=== PATIENT | female | born 1945 | race Caucasian/White ===

== ENCOUNTER 2019-10-12 13:17 | Emergency (ER) | payer MEDICARE, BC, MEDICAID, SELFPAY ==
[2019-10-12] VITALS (7 sets, daily range): BP systolic 166–224; BP diastolic 98–141; PULSE 74–92; RESP 16–22; TEMP 36.5; O2SAT 92–95; BMI 35.6
--- NOTE | 2019-10-12 13:20 | ED_ITS ---
Entered by Mikaela Grimm, acting as scribe for Sofia Duarte MD HPI - SOB/Dyspnea General: Chief Complaint: Shortness of Breath/Dyspnea Stated Complaint: SOB Time Seen by Provider: 10/12/19 13:19 Source: patient, family and EMS Mode of arrival: EMS Limitations: no limitations History of Present Illness: MD elicited complaint: shortness of breath Onset (ago): day(s) (today) Timing: progressively worsening Exacerbating factors: coughing and deep breaths Relieving factors: nothing Associated symptoms: Reports cough; Deny abdominal pain, chest pain, fever(s), nausea or vomiting Treatment prior to arrival: none Related Data: Home oxygen amount: none Review of Systems Const: Denies: fever, chills, body aches or change in appetite Eyes: Denies: blurry vision or eye discomfort ENMT: Denies: throat pain or dental pain Card: Denies: chest pain Resp: Reports: non-productive cough GI: Denies: abdominal pain, nausea, vomiting or diarrhea : Denies: painful urination Musc: Denies: neck pain or back pain Skin/Breast: Denies: rash Neuro: Denies: headache Psych: Denies: depression Altaf/Lymph: Denies: easy bruising All/Imm: Denies: hives PFSH ED PFSH: Statuses (acute, chronic, etc) shown below reflect problem list status as previously entered and may not be historically accurate Medical History (Updated 10/12/19 @ 14:47 by Sofia Duarte MD) Neurogenic bladder (Acute) Recurrent UTI (Acute) Urinary retention (Chronic) Surgical History (Updated 09/18/19 @ 13:26 by Edd Jeronimo MD) Chronic suprapubic catheter (Acute) Social History Smoking and tobacco status: former smoker Alcohol intake: never Marital status: Current occupational status: disabled Current gender identity: Female Physical Exam Const: COMMON NORMALS: no apparent distress, oriented x3 and healthy appearing HENMT: COMMON NORMALS: normocephalic and head/scalp atraumatic HEAD & SCALP: normocephalic and atraumatic Eye: COMMON NORMALS: PERRL and EOMs intact bilaterally PUPIL: Yes PERRL Neck/C-Spine: COMMON NORMALS: full ROM and supple Chest: COMMONS NORMALS: inspection of chest normal and palpation of chest normal Cardio: COMMON NORMALS: regular rate, regular rhythm and no murmurs RATE: regular rate RHYTHM: regular rhythm GI: COMMON NORMALS: normal to inspection, nondistended, normoactive bowel sounds, soft to palpation, non-tender and no masses PALPATION: Yes soft Extremity: COMMON NORMALS: normal to inspection and full ROM Neuro: COMMON NORMALS: oriented x3, moves all extremities and no focal motor deficits Psych: COMMON NORMALS: mental status grossly normal, thought process normal and cooperative THOUGHT PROCESS: normal thought process Skin: COMMON NORMALS: no rashes or lesions noted and no wounds GENERAL SKIN EXAM: no rashes or lesions noted Course Vital Signs: Vital signs: Vital Signs Temperature 97.7 F 10/12/19 13:19 Pulse Rate 83 10/12/19 15:39 Respiratory Rate 18 10/12/19 15:39 Blood Pressure 175/141 10/12/19 15:39 Pulse Oximetry 92 10/12/19 15:39 MDM - SOB/Dyspnea MDM Narrative: Medical decision making narrative: Patient presents here with cough and congestion with likely bronchitis. She is in no distress here and x- ray shows no signs of pneumonia. Patient is oxygen is been normal here on room air. Will start on Keflex patient given Decadron here. [facility] and is stable for discharge. She is to follow-up with primary care doctor in 3 to 5 days and return if worsening. Lab Data: Labs: Lab Results 10/12/19 10/12/19 Range/Units 13:10 14:12 WBC 5.5 (4.0-10.0) 10^3/ uL RBC 4.19 (4.1-5.3) 10^6/u L Hgb 11.9 (11.5-15.3) g/dL Hct 37.6 (37.0-47.0) % MCV 89.7 (81-99) fL MCH 28.4 (28.0-34.0) pg MCHC 31.6 (30.0-36.0) g/dL RDW 13.5 (12.1-15.1) % Plt Count 202 (130-400) 10^3/c mm MPV 11.1 H (7.4-10.4) fL Neut % (Auto) 55.2 % Lymph % (Auto) 32.8 % [place] % (Auto) 9.0 % Eos % (Auto) 2.4 % Baso % (Auto) 0.4 % Neut # (Auto) 3.0 (1.8-7.7) 10^3/u L Lymph # (Auto) 1.8 (0.8-4.8) 10^3/u L [place] # (Auto) 0.5 (0.2-0.9) 10^3/u L Eos # (Auto) 0.1 (0.0-0.8) 10^3/u L Baso # (Auto) 0.0 (0.0-0.1) 10^3/u L Nucleated RBC % (a uto) 0 % Nucleated RBCs # 0.0 /100WBC Sodium 142 (136-145) mmol/L Potassium 3.4 L (3.5-5.1) mmol/L Chloride 100 (98-107) mmol/L Carbon Dioxide 27 (22-29) mmol/L Anion Gap 18.4 (5-19) BUN 19 (8-23) mg/dL Creatinine 1.8 H (0.5-0.9) mg/dL Glucose 216 H (74-106) mg/dL Calcium 9.6 (8.5-10.5) mg/dL Total Bilirubin 0.2 (0.15-1.2) mg/dL AST 20 (0-32) U/L ALT 25 (0-33) U/L Alkaline Phosphata se 102 (35-105) IU/L NT-Pro-B Natriuret Pep 759 H (0-125) pg/mL Total Protein 7.3 (6.6-8.7) g/dL Albumin 3.7 (3.5-5.2) g/dL Globulin 3.6 (1.3-4.6) g/dL Imaging Data^: CXR: Radiologist's impression: Ordering Provider/Ordering MD: Sofia Duarte MD Date of Service: 10/12/19 Procedure(s): XR chest 1V portable [id number] Accession Number(s): [id number] Report Number: [id number] PROCEDURE INFORMATION: Exam: XR Chest, 1 View Exam date and time: 10/12/2019 1:24 PM Age: 73 years old Clinical indication: Shortness of breath; Additional info: Cough TECHNIQUE: Imaging protocol: XR of the chest Views: 1 view. COMPARISON: CR Chest 1 [place] [id number] 03/10/2019 7:24 PM FINDINGS: Lungs: There are streaky bibasilar opacities. Pleural space: There is no significant pleural effusion. There is no discernible pneumothorax. Heart/Mediastinum: The cardiac silhouette measures upper limits normal in size and is unchanged. Vasculature: Atherosclerotic calcifications are present within the aortic arch. Bones/joints: Unremarkable for technique. XR/XR chest 1V portable [id number] IMPRESSION: 1. Streaky bibasilar opacities, which may reflect atelectasis versus early pneumonia in the correct clinical setting. Consider follow-up evaluation in 4-6 weeks to assess for resolution. EKG Data^: EKG 1: Attestation: I personally reviewed and interpreted this EKG as follows: EKG Interpretation Date: 10/12/19 EKG interpretation time: 13:33 Interpretation: nsr hr [address] or t wave abnormalities qrs 97 qtc 3656 Discharge Plan Discharge Patient Disposition: Home, Self-Care Clinical Impression: Bronchitis, Hypertension Condition: Stable Prescriptions: New Keflex 500 mg capsule 500 mg PO Q6H 7 Days Qty: 28 RF: 0 amlodipine 10 mg tablet 10 mg PO DAILY Qty: 30 RF: 0 Discontinued amlodipine 5 mg tablet 5 mg PO DAILY RF: 0 No Action Prilosec OTC 20 mg tablet,delayed release (DR/EC) 20 mg PO BID RF: 0 albuterol sulfate 2.5 mg /3 mL (0.083 %) solution for nebulization 2.5 mg INHALATION Q4H PRN (Reason: Shortness Of Breath) RF: 0 methenamine hippurate 1 gram tablet 1 gm PO BID RF: 0 polyethylene glycol 3350 [Miralax] 17 gram/dose powder 17 gm PO DAILY RF: 0 docusate sodium [Colace] 100 mg capsule 100 mg PO BID RF: 0 acetaminophen 650 mg suppository 650 mg IN Q4H PRN (Reason: Pain) RF: 0 bisacodyl [Dulcolax (bisacodyl)] 10 mg suppository 10 mg IN PRN RF: 0 magnesium hydroxide [Milk of Magnesia] 400 mg/5 mL suspension See Rx Instructions .ROUTE .COMPLEX RF: 0 acetaminophen [Tylenol] 325 mg tablet 325 - 650 mg PO Q4H PRN (Reason: Pain) RF: 0 isosorbide mononitrate 60 mg tablet extended release 24 hr 60 mg PO DAILY RF: 0 clopidogrel 75 mg tablet 75 mg PO DAILY RF: 0 cholecalciferol (vitamin D3) 1,000 unit capsule 3,000 unit PO DAILY RF: 0 diazepam [Valium] 10 mg tablet 10 mg PO BEDTIME RF: 0 furosemide [Lasix] 20 mg tablet 60 mg PO DAILY RF: 0 potassium chloride 20 mEq tablet extended release 20 meq PO DAILY RF: 0 phenazopyridine [Pyridium] 200 mg tablet 200 mg PO TID PRN (Reason: unknown) RF: 0 Celexa 20 mg Tablet 20 mg PO DAILY RF: 0 bisacodyl 5 mg Tablet,Delayed Release (Dr/Ec) 10 mg PO DAILY PRN (Reason: Constipation) RF: 0 Discharge Orders: Discharge Order (Routine); Ordered 10/12/19 Ordered By: Sofia Duarte Referrals: Svetlana Ware MD [Primary Care Provider] - 4-7 days Discharge Diet: Advance as tolerated Discharge Activity: Resume usual activity Patient Instructions: Acute Bronchitis (ED), Hypertension (ED) Discharge Date/Time: 10/12/19 16:24 Coding Level of Care Code ED Director Public Policy for Chg Fwd Exam Problem Focused The documentation recorded by the Alfa vazquez Bridget Annette, accurately reflects the service I personally performed and the decisions made by Felicia gonzalez Korby, MD Oct 12, 2019 13:17
--- NOTE | 2019-10-12 13:22 | ECG_ITS ---
Measurements Intervals [place] Rate: 73 P: 39 CT: 160 QRS: -43 QRSD: 97 T: 69 QT: 339 QTc: 375 SINUS RHYTHM WITH OCCASIONAL SUPRAVENTRICULAR PREMATURE COMPLEXES LEFT AXIS DEVIATION [QRS AXIS < -30] NONSPECIFIC ST & T-WAVE ABNORMALITY Compared to ECG 03/10/2019 19:18:00 Left-axis deviation now present T-wave abnormality now present Sinus tachycardia no longer present ST (T wave) deviation no longer present Electronically Signed On 10-12-2019 16:24:48 APPLICATION LEAD by Pranay Donato M.D. [email or web address]
[2019-10-12] MEDS: dexamethasone 10 mg/mL INJ IVP (13:36)
[2019-10-12 13:41] LABS: Basophils % 0.4 %; Eosinophils # 0.1 10^3/uL (0.0-0.8); Eosinophils % 2.4 %; Hematocrit 37.6 % (37.0-47.0); Hemoglobin 11.9 g/dL (11.5-15.3); Lymphocytes # 1.8 10^3/uL (0.8-4.8); Lymphocytes % 32.8 %; Mean Corpuscular HGB Conc 31.6 g/dL (30.0-36.0); Mean Corpuscular Hemoglobin 28.4 pg (28.0-34.0); Mean Corpuscular Volume 89.7 fL (81-99); Mean Platelet Volume 11.1 fL (7.4-10.4); Monocytes # 0.5 10^3/uL (0.2-0.9); Neutrophils % 55.2 %; Nucleated Red Blood Cells % 0 %; Platelet Count 202 10^3/cmm (130-400); Red Blood Count 4.19 10^6/uL (4.1-5.3); Red Cell Distribution Width 13.5 % (12.1-15.1); White Blood Count 5.5 10^3/uL (4.0-10.0)
[2019-10-12] MEDS: ipratropium-albuterol 3 mL Neb INHALATION (13:51)
[2019-10-12] MEDS: hyDRALAzine 20 mg/mL INJ 1 mL 10 MG IVP ×2 (14:24→15:08)
[2019-10-12 14:40] LABS: Alanine Aminotransferase 25 U/L (0-33); Albumin Level 3.7 g/dL (3.5-5.2); Alkaline Phosphatase 102 IU/L (35-105); Anion Gap 18.4 (5-19); Aspartate Amino Transferase 20 U/L (0-32); Blood Urea Nitrogen 19 mg/dL (8-23); Calcium 9.6 mg/dL (8.5-10.5); Carbon Dioxide 27 mmol/L (22-29); Chloride 100 mmol/L (98-107); Globulin 3.6 g/dL (1.3-4.6); Glucose 216 mg/dL (74-106); NT Pro B Type Natriuretic Pept 759 pg/mL (0-125); Potassium 3.4 mmol/L (3.5-5.1); Sodium 142 mmol/L (136-145); Total Bilirubin 0.2 mg/dL (0.15-1.2); Total Protein 7.3 g/dL (6.6-8.7)
[2019-10-12] MEDS: cloNIDine 0.1 mg Tablet PO (14:59)
--- NOTE | 2019-10-12 15:38 | PC.NURSE ---
Report given to Meagan at [facility] for patient to come back to their facility. Guille jackman has been called and set up.
== END 2019-10-12 16:24 | disposition home or self-care (01) ==
PROVIDERS: Emergency Provider Emergency Medicine; Family Provider Family Medicine; PCP Family Medicine
DX: J40 Bronchitis, not specified as acute or chronic (principal); I10 Essential (primary) hypertension; Z87.891 Personal history of nicotine dependence
CPT/HCPCS: 36415; 71045; 80053; 83880; 85025; 93005; 94640; 96374; 96375; 96376; 99283; 99284; J0360; J1100; J7611

== ENCOUNTER 2020-01-07 01:33 | Inpatient (IN) | payer MEDICARE, BC, MEDICAID, SELFPAY ==
[2020-01-07] VITALS (17 sets, daily range): BP systolic 153–204; BP diastolic 79–101; PULSE 58–100; RESP 12–24; TEMP 36.3–36.8; O2SAT 94–98
--- NOTE | 2020-01-07 01:37 | XR_ITS ---
WS: [id number] PORTABLE CHEST HISTORY: cough COMPARISON: 10/12/2019 Increasing consolidation at the LEFT lung base. Consolidation obscures the diaphragm and the apex of the heart. Chronic emphysema. No pneumothorax. Cardiac size: Moderately enlarged cardiac silhouette. Mediastinum/Aorta: Mild atherosclerosis aorta. Partially calcified aorta. No osseous abnormality seen. XR/XR chest 1V portable [id number] IMPRESSION: 1. New consolidation at the LEFT lung base. Probably combination of pneumonia and atelectasis and fluid. Recommend follow-up to resolution. 2. Moderate cardiomegaly.
--- NOTE | 2020-01-07 01:39 | ECG_ITS ---
Measurements Intervals [place] Rate: 82 P: ND: 0 QRS: 17 QRSD: 90 T: 50 QT: 372 QTc: 436 Sinus RHYTHM POSSIBLE ANTERIOR MYOCARDIAL INFARCTION , OF INDETERMINATE AGE [30 ms Q WAVE IN V3 V3/V4, OR R < 0.2 mV IN V4] Compared to ECG 10/12/2019 13:33:47 Supraventricular rhythm now present Myocardial infarct finding now present Sinus rhythm no longer present Left-axis deviation no longer present T-wave abnormality no longer present Electronically Signed On 01-07-2020 18:09:38 CDT by Nima Patel M.D. [email or web address]
--- NOTE | 2020-01-07 01:45 | W.ED.GENADLT ---
HPI - General Adult General: Chief complaint: General Medical Stated complaint: HIGH BLOOD PRESSURSE Time Seen by Provider: 01/07/20 01:37 History of Present Illness: HPI narrative: Ms. Vences is a very nice 74-year-old female who comes in from the intermediate with report of severe high blood pressure and hypoxia. Apparently at 1 AM the intermediate obtained vital signs reveal a blood pressure in the 240s over 1 teens. The patient appeared to have labored breathing so a pulse ox was checked and found to have a oxygen saturation in the mid to low 80s. The patient has been gradually becoming more edematous over the past few days according to the intermediate. The patient here denies any complaints but states that she just feels achy all over. All further history is taken from old charts. The patient only answers some yes/no questions but otherwise tries to go back to sleep. Review of Systems General: Reports: ROS unobtainable due to medical condition (Limited other than as noted above.) PFS ED PFSH: Family History Mother , AT AGE 83-[place] No problems noted. Father , OF APPARENT TRACHEAL OBSTRUCTION No problems noted. Social History Smoking and tobacco status: unknown if ever smoked Alcohol intake: never Marital status: Current occupational status: disabled Current gender identity: Female Physical Exam Const: COMMON NORMALS: oriented x3, healthy appearing and well nourished EXAM LIMITATIONS: altered mental status (Somnolent) GENERAL APPEARANCE: cooperative, well kempt, well developed, in distress (Mild respiratory), lethargic, ill appearing, frail appearing and grossly edematous ORIENTATION/CONSCIOUSNESS: Yes awake and Yes lethargic HENMT: COMMON NORMALS: normocephalic, head/scalp atraumatic, hearing grossly normal bilaterally, external ears normal, EAC's normal, external nose normal and moist oral mucous membranes HEAD & SCALP: normal to inspection, normocephalic and atraumatic FACE & SINUS: normal facial exam and face symmetric NOSE: external nose normal and nares normal EXTERNAL EAR: Yes external ears normal EXTERNAL AUDITORY CANAL: EAC's normal MOUTH: oral and palatal mucosa normal and tongue normal Eye: COMMON NORMALS: PERRL, EOMs intact bilaterally, conjunctivae normal and no scleral icterus GENERAL EYE: normal appearance of both eyes and normal light reflex CONJUNCTIVA: Yes conjunctivae normal SCLERA: sclerae normal CORNEA: Yes corneas normal PUPIL: Yes PERRL DIRECT OPHTHALMOSCOPY: Yes normal light reflex Neck/C-Spine: COMMON NORMALS: full ROM, no lymphadenopathy, supple, no meningeal signs and no JVD GENERAL: Yes normal visual inspection and Yes trachea midline CERVICAL SPINE: Yes cervical ROM normal Chest: COMMONS NORMALS: inspection of chest normal and palpation of chest normal Resp: COMMON NORMALS: no retractions and no use of accessory muscles EFFORT & INSPECTION: Yes uses accessory muscles AUSCULTATION: rales and wheezes Cardio: COMMON NORMALS: no JVD, regular rate, regular rhythm, S1 normal heart sound, S2 normal heart sound, no gallops, no clicks, no murmurs and no rub JUGULAR VENOUS DISTENTION: no JVD RATE: regular rate RHYTHM: regular rhythm HEART SOUNDS: S1 normal and S2 normal GI: COMMON NORMALS: soft to palpation, non-tender, no hepatosplenomegaly and no masses INSPECTION: Yes normal to inspection PALPATION: Yes soft and Yes no hepatosplenomegaly : COMMON NORMALS: Yes no CVA tenderness BLADDER/KIDNEY EXAM: Yes no CVA tenderness Back/Pelvis: COMMON NORMALS: no CVA tenderness, thoracic and lumbar spine normal to inspection, no thoracic nor lumbar tenderness and thoraco-lumbar ROM normal Extremity: COMMON NORMALS: normal to inspection, full ROM, normal capillary refill, no joint enlargement and no calf tenderness NARRATIVE EXTREMITY EXAM: Diffuse edema Neuro: COMMON NORMALS: oriented x3, CN's II-XII intact bilaterally, moves all extremities, no focal motor deficits and no sensory deficits noted SENSORIUM/ORIENTATION: Yes lethargic MENINGEAL SIGNS: Yes no meningeal signs Psych: COMMON NORMALS: mental status grossly normal, thought process normal, cooperative, affect normal, speech normal and activity/motor behavior normal APPEARANCE: Yes well kempt SPEECH: Yes normal speech THOUGHT PROCESS: normal thought process Skin: COMMON NORMALS: no rashes or lesions noted, skin turgor normal, no jaundice, no petechiae and no mottling GENERAL SKIN EXAM: no rashes or lesions noted and turgor normal Course Vital Signs: Vital signs: Vital Signs Temperature 98.2 F 01/07/20 01:50 Pulse Rate 82 01/07/20 02:45 Respiratory Rate 22 H 01/07/20 02:28 Blood Pressure 204/101 01/07/20 01:50 Pulse Oximetry 96 01/07/20 02:45 MDM - General Adult MDM Narrative: Medical decision making narrative: Mrs. Vences is a nice 74-year-old female who comes in what appears to be a congestive heart failure exacerbation and hypoxic and hypercapnic respiratory failure. The patient is doing better on BiPAP at this time. Her blood pressure was markedly elevated when she arrived but this is improved after nitroglycerin and Lasix. Urinalysis is still pending at this time and UTI as a cause for her symptoms is a possibility. Nonetheless she is doing better so I have reviewed the case in full with Dr. Chen he agrees to admit for further treatment and stepdown. Lab Data: Attestation: I reviewed the patient's lab results. Labs: Lab Results 01/07/20 01/07/20 01/07/20 Range/Units 02:09 02:21 02:21 WBC 4.7 (4.0-10.0) 10^3/ uL RBC 3.53 L (4.1-5.3) 10^6/u L Hgb 10.0 L (11.5-15.3) g/dL Hct 33.4 L (37.0-47.0) % MCV 94.6 (81-99) fL MCH 28.3 (28.0-34.0) pg MCHC 29.9 L (30.0-36.0) g/dL RDW 15.0 (12.1-15.1) % Plt Count 137 (130-400) 10^3/c mm MPV 10.5 H (7.4-10.4) fL Neut % (Auto) 69.6 % Lymph % (Auto) 18.8 % [place] % (Auto) 6.8 % Eos % (Auto) 3.6 % Baso % (Auto) 0.6 % Neut # (Auto) 3.3 (1.8-7.7) 10^3/u L Lymph # (Auto) 0.9 (0.8-4.8) 10^3/u L [place] # (Auto) 0.3 (0.2-0.9) 10^3/u L Eos # (Auto) 0.2 (0.0-0.8) 10^3/u L Baso # (Auto) 0.0 (0.0-0.1) 10^3/u L Nucleated RBC % (a uto) 0 % Nucleated RBCs # 0.0 /100WBC PT 13.80 H (10.5-13.3) SECO NDS INR 1.03 (0.8-1.2) Sodium (136-145) mmol/L Potassium (3.5-5.1) mmol/L Chloride (98-107) mmol/L Lactic Acid (0.5-2.2) mmol/L Troponin T Baselin e (0-10) ng/mL Influenza Type A A g Negative (Negative) Influenza Type B A g Negative (Negative) 01/07/20 01/07/20 01/07/20 Range/Units 02:21 02:21 02:21 WBC (4.0-10.0) 10^3/ uL RBC (4.1-5.3) 10^6/u L Hgb (11.5-15.3) g/dL Hct (37.0-47.0) % MCV (81-99) fL MCH (28.0-34.0) pg MCHC (30.0-36.0) g/dL RDW (12.1-15.1) % Plt Count (130-400) 10^3/c mm MPV (7.4-10.4) fL Neut % (Auto) % Lymph % (Auto) % [place] % (Auto) % Eos % (Auto) % Baso % (Auto) % Neut # (Auto) (1.8-7.7) 10^3/u L Lymph # (Auto) (0.8-4.8) 10^3/u L [place] # (Auto) (0.2-0.9) 10^3/u L Eos # (Auto) (0.0-0.8) 10^3/u L Baso # (Auto) (0.0-0.1) 10^3/u L Nucleated RBC % (a uto) % Nucleated RBCs # /100WBC PT (10.5-13.3) SECO NDS INR (0.8-1.2) Sodium 146 H (136-145) mmol/L Potassium 4.7 (3.5-5.1) mmol/L Chloride 108 H (98-107) mmol/L Lactic Acid 0.5 (0.5-2.2) mmol/L Troponin T Baselin e 44 H (0-10) ng/mL Influenza Type A A g (Negative) Influenza Type B A g (Negative) Imaging Data^: CXR: My impression: Cardiomegaly with left-sided pleural effusion. EKG Data^: EKG 1: Attestation: I personally reviewed and interpreted this EKG as follows: EKG interpretation date: 01/07/20 EKG interpretation time: 02:39 Interpretation: Normal sinus rhythm at 82 beats a minute, significant baseline artifact, nonspecific ST and T wave changes. Discharge Plan Discharge Patient Disposition: Admitted As Inpatient Clinical Impression: Respiratory failure with hypoxia and hypercapnia, Acute exacerbation of congestive heart failure Condition: Stable Prescriptions: No Action Prilosec OTC 20 mg tablet,delayed release (DR/EC) 20 mg PO BID RF: 0 albuterol sulfate 2.5 mg /3 mL (0.083 %) solution for nebulization 2.5 mg INHALATION Q4H PRN (Reason: Shortness Of Breath) RF: 0 methenamine hippurate 1 gram tablet 1 gm PO BID RF: 0 polyethylene glycol 3350 [Miralax] 17 gram/dose powder 17 gm PO DAILY RF: 0 docusate sodium [Colace] 100 mg capsule 100 mg PO BID RF: 0 acetaminophen 650 mg suppository 650 mg IA Q4H PRN (Reason: Pain) RF: 0 bisacodyl [Dulcolax (bisacodyl)] 10 mg suppository 10 mg IA PRN RF: 0 magnesium hydroxide [Milk of Magnesia] 400 mg/5 mL suspension See Rx Instructions .ROUTE .COMPLEX RF: 0 acetaminophen [Tylenol] 325 mg tablet 325 - 650 mg PO Q4H PRN (Reason: Pain) RF: 0 isosorbide mononitrate 60 mg tablet extended release 24 hr 60 mg PO DAILY RF: 0 clopidogrel 75 mg tablet 75 mg PO DAILY RF: 0 cholecalciferol (vitamin D3) 1,000 unit capsule 3,000 unit PO DAILY RF: 0 diazepam [Valium] 10 mg tablet 10 mg PO BEDTIME RF: 0 furosemide [Lasix] 20 mg tablet 60 mg PO DAILY RF: 0 potassium chloride 20 mEq tablet extended release 20 meq PO DAILY RF: 0 phenazopyridine [Pyridium] 200 mg tablet 200 mg PO TID PRN (Reason: unknown) RF: 0 Celexa 20 mg Tablet 20 mg PO DAILY RF: 0 bisacodyl 5 mg Tablet,Delayed Release (Dr/Ec) 10 mg PO DAILY PRN (Reason: Constipation) RF: 0 amlodipine 10 mg tablet 10 mg PO DAILY Qty: 30 RF: 0 Referrals: Svetlana Ware MD [Primary Care Provider] - Coding Level of Care Code ED Sustainable Communities Designer for Chg [facility]
[2020-01-07 02:19] LABS: ABG PCO2 52.6 mmHg (35-45); ABG PH Result 7.35 (7.35-7.45); Arterial Blood Gas Hematocrit 34.3 % (37-47); Base Excess ABG 2.2 mmol/L (-2.0-2.0); Blood Gas Allen Test Pos; Blood Gas Sample Site Radial, right; Blood Gas Sample Type Arterial; HCO3 ABG 28.7 mmol/L (22-26); Oxygen Device NC
[2020-01-07] MEDS: ipratropium-albuterol 3 mL Neb 9 ML INHALATION (02:23)
[2020-01-07 02:28] LABS: Basophils % 0.6 %; Eosinophils # 0.2 10^3/uL (0.0-0.8); Eosinophils % 3.6 %; Hematocrit 33.4 % (37.0-47.0); Lymphocytes # 0.9 10^3/uL (0.8-4.8); Lymphocytes % 18.8 %; Mean Corpuscular HGB Conc 29.9 g/dL (30.0-36.0); Mean Corpuscular Hemoglobin 28.3 pg (28.0-34.0); Mean Corpuscular Volume 94.6 fL (81-99); Mean Platelet Volume 10.5 fL (7.4-10.4); Monocytes # 0.3 10^3/uL (0.2-0.9); Monocytes % 6.8 %; Neutrophils # 3.3 10^3/uL (1.8-7.7); Neutrophils % 69.6 %; Nucleated Red Blood Cells % 0 %; Platelet Count 137 10^3/cmm (130-400); Red Blood Count 3.53 10^6/uL (4.1-5.3); White Blood Count 4.7 10^3/uL (4.0-10.0)
[2020-01-07 02:46] LABS: INR 1.03 (0.8-1.2); Lactic Sepsis W/Reflex 0.5 mmol/L (0.5-2.2)
[2020-01-07 02:48] LABS: Troponin(5th) Baseline 44 ng/mL (0-10)
[2020-01-07] MEDS: nitroglycerin 1 gm/inch oint Pkt 1 INCH TOPICAL (02:56)
[2020-01-07] MEDS: FUROsemide 10 mg/mL SDV 4mL 60 MG IVP (02:56)
[2020-01-07] MEDS: piperacillin-tazobactam 3.375 GM in sodium chloride 0.9% (plus) 50 ML IV (02:56)
[2020-01-07 03:00] LABS: Influenza A by IFA Negative (Negative); Influenza B by IFA Negative (Negative)
[2020-01-07 03:10] LABS: Chloride 108 mmol/L (98-107); Potassium 4.7 mmol/L (3.5-5.1); Sodium 146 mmol/L (136-145)
--- NOTE | 2020-01-07 03:17 | PM.HP ---
Providers/Chief Complaint Primary Care Provider: Svetlana Ware MD Chief Complaint: HIGH BLOOD PRESSURSE History of Present Illness Bety Vences is a 74 year old female , [facility] resident who carries diagnosis of multiple sclerosis, neurogenic bladder, suprapubic catheter, bedbound, diastolic congestive heart failure came in with chief complaint of uncontrolled hypertension. As per the [facility], patient uses electric scooter for ambulation, mostly stays in her bed, she has chronic swelling of lower extremities, at change of shift nursing staff took her blood pressure which was 240/118, she was found to have mild confusion for which she was sent to our ER for further evaluation. Patient is not able to tell us why she is in the hospital. She is currently denying chest pain, but is endorsing orthopnea, PND. She is denying sick contacts, fever, chills, nausea, vomiting or change in bowel movements at the facility. Diagnostics in the ER revealed systolic blood pressure around 210, diastolic 100, she was given IV Lasix and Nitropaste was used to reduce blood pressure, ABG revealed hypoxic hypercarbic respiratory failure, she was put on BiPAP to decrease respiratory distress, at the time of my interview she was awake alert able to comprehend my questions. Review of Systems Const: Reports: body aches and fatigue; Denies: fever or chills Eyes: Denies: change in vision ENMT: Denies: throat pain Card: Denies: chest pain Resp: Reports: shortness of breath GI: Denies: abdominal pain or nausea : Denies: flank pain Musc: Reports: muscle cramps Skin/Breast: Denies: rash Neuro: Denies: headache Psych: Denies: anxiety or depression Endo: Denies: excessive urination Altaf/Lymph: Denies: easy bruising All/Imm: Denies: hives Medications/Allergies Home Medications Medication Instructions Recorded Confirmed Last Taken Type acetaminophen 325 mg tablet 325 - 650 mg PO Q4H PRN 09/18/19 10/12/19 Unknown History acetaminophen 650 mg rectal 650 mg ME Q4H PRN 09/18/19 10/12/19 Unknown History suppository albuterol sulfate 2.5 mg INHALATION Q4H PRN 09/18/19 10/12/19 Unknown History bisacodyl 10 mg rectal suppository 10 mg ME PRN each 09/18/19 10/12/19 Unknown History cholecalciferol (vitamin D3) 25 3,000 unit PO DAILY cap 09/18/19 10/12/19 10/12/19 History mcg (1,000 unit) capsule clopidogrel 75 mg tablet 75 mg PO DAILY tab 09/18/19 10/12/19 10/12/19 History diazepam 10 mg tablet 10 mg PO BEDTIME tab 09/18/19 10/12/19 Unknown History docusate sodium 100 mg capsule 100 mg PO BID cap 09/18/19 10/12/19 10/12/19 History furosemide 20 mg tablet 60 mg PO DAILY tab 09/18/19 10/12/19 10/12/19 History isosorbide mononitrate 60 mg 60 mg PO DAILY tab 09/18/19 10/12/19 10/12/19 History tablet,extended release 24 hr magnesium hydroxide 400 mg/5 mL See Rx Instructions .ROUTE 09/18/19 10/12/19 Unknown History oral suspension .COMPLEX ml methenamine hippurate 1 gram tablet 1 gm PO BID 09/18/19 10/12/19 10/12/19 History omeprazole magnesium 20 mg 20 mg PO BID 09/18/19 10/12/19 10/12/19 History tablet,delayed release phenazopyridine 200 mg tablet 200 mg PO TID PRN 09/18/19 10/12/19 Unknown History polyethylene glycol 3350 17 17 gm PO DAILY gm 09/18/19 10/12/19 10/12/19 History gram/dose oral powder potassium chloride 20 mEq 20 meq PO DAILY tab 09/18/19 10/12/19 10/12/19 History tablet,extended release amlodipine 10 mg PO DAILY #30 tab 10/12/19 Unknown Rx bisacodyl 10 mg PO DAILY PRN 10/12/19 10/12/19 Unknown History citalopram [Celexa] 20 mg PO DAILY 10/12/19 10/12/19 10/12/19 History Allergies Allergy/AdvReac Type Severity Reaction Status Date / Time Iodinated Contrast Media Allergy Unknown Verified 09/09/19 17:59 iodine Allergy UNKNOWN Verified 09/09/19 17:59 prednisone Allergy UNKNOWN Verified 09/09/19 17:59 PFSH Acute PFSH: Medical History Abnormal renal function Acute worsening of stage 3 chronic kidney disease Diabetes Heart failure with preserved ejection fraction Multiple sclerosis Neurogenic bladder Recurrent UTI Status post fracture of femur Urinary retention Surgical History Chronic suprapubic catheter History of History of heart artery stent Drug-eluting stent obtuse marginal and distal left circumflex, 10/13/2008, first diagonal branch and anterior descending Status post cataract extraction Status post cholecystectomy Status post hysterectomy Family History Mother , AT AGE 83-[place] No problems noted. Father , OF APPARENT TRACHEAL OBSTRUCTION No problems noted. Social History Smoking and tobacco status: unknown if ever smoked Alcohol intake: never Marital status: Current occupational status: disabled Current gender identity: Female Vitals/I&O/Wt Last Vital Signs Temp 98.2 F 01/07/20 01:50 Pulse 81 01/07/20 02:28 Resp 22 H 01/07/20 02:28 BP 204/101 01/07/20 01:50 Pulse Ox 97 01/07/20 02:28 Weight last 48 hrs Weight 90.718 kg Physical Exam Narrative: EXAM NARRATIVE: Appears stated age, morbidly obese female Currently on BiPAP setting 25/06 with good tidal volumes Saturating well Clinically looks fluid overloaded, bilateral lower extremity 3+ pitting edema with venous stasis dermatitis no active signs of cellulitis S1, S2 with 2/ 6 systolic murmur around precordium Abdomen distended, nontender, bowel sounds present Suprapubic catheter without any active drainage or signs of cellulitis around insertion site Awake alert oriented x3 has poor insight, Skin shows venous stasis dermatitis Data : 01/07/20 02:21 01/07/20 02:21 Micro: Microbiology 01/07/20 02:08 Blood Culture - Preliminary Blood SPECIMEN COLLECTED 01/07/20 02:08 Blood Culture - Preliminary Blood SPECIMEN COLLECTED A&P Assessment and plan (1) Respiratory failure with hypoxia and hypercapnia: Status: Acute Qualifiers: Chronicity: acute Qualified Code(s): J96.01 - Acute respiratory failure with hypoxia; J96.02 - Acute respiratory failure with hypercapnia (2) Acute exacerbation of congestive heart failure: Status: Acute Qualifiers: Heart failure type: unspecified Qualified Code(s): I50.9 - Heart failure, unspecified (3) Chronic suprapubic catheter: Status: Acute (4) Hypertensive emergency: Status: Acute Additional A&P Information Acute hypoxic hypercarbic respiratory failure due to CHF exacerbation Currently doing well on BiPAP Does not use oxygen at baseline Blood gas reviewed This is most likely secondary to fluid congestion due to CHF exacerbation with possibility of evolving left lower lobe pneumonia, her bicarb seems to be around 27, not sure if she has any sleep studies for diagnosis of obstructive sleep apnea Community-acquired pneumonia No recent hospitalization in the last 90 days, no recent IV antibiotic usage I will treat her with ceftriaxone and azithromycin, check urine antigens, she has low pneumonia severity index Chest x-ray revealing fluid congestion, pleural effusion, probably evolving left lower lobe pneumonia Diastolic congestive heart failure with active exacerbation due to hypertensive emergency I would diurese her with IV Lasix at this point and monitor creatinine closely, clinically she is fluid overloaded Review of previous echo reveals preserved ejection fraction Hypertensive emergency target mean arterial pressure reduction 25% in first 16 to 20 hours I would add metoprolol along Imdur, discontinue Nitropaste in next 4 hours Chronic kidney disease stage III Creatinine at baseline no active exacerbation I would not order urine culture because of indwelling catheter which might show colonized microorganisms Chronic normocytic anemia Hemoglobin stable DNR/DNI Cardiac diet Attestations Medical Necessity Statement*: Anticipating stay in the hospital to cross more than 2 midnights currently needs IV diuresis and BiPAP for hypercarbic respiratory failure Time Spent in Patient Care: 50 Coding Level of Care Code 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
[2020-01-07 03:37] LABS: Alanine Aminotransferase 24 U/L (0-33); Alkaline Phosphatase 116 IU/L (35-105); Anion Gap 15.7 (5-19); Aspartate Amino Transferase 16 U/L (0-32); Blood Urea Nitrogen 22 mg/dL (8-23); Calcium 9.5 mg/dL (8.5-10.5); Carbon Dioxide 27 mmol/L (22-29); Glucose 99 mg/dL (65-115); Magnesium 2.2 mg/dL (1.7-2.3); Osmolality Calculated 299 mOsm/kg (285-295); Total Bilirubin 0.2 mg/dL (0.15-1.2); Total Protein 6.7 g/dL (6.6-8.7)
--- NOTE | 2020-01-07 03:39 | ECG_ITS ---
Measurements Intervals [place] Rate: 81 P: 17 GA: 151 QRS: 5 QRSD: 98 T: 47 QT: 389 QTc: 453 SINUS RHYTHM POSSIBLE ANTERIOR MYOCARDIAL INFARCTION , OF INDETERMINATE AGE [30 ms Q WAVE IN V3 V3/V4, OR R < 0.2 mV IN V4] Compared to ECG 10/12/2019 13:33:47 Myocardial infarct finding now present Left-axis deviation no longer present T-wave abnormality no longer present Electronically Signed On 01-07-2020 18:12:54 CDT by Nima Patel M.D. [email or web address]
[2020-01-07 03:41] LABS: Albumin Level 3.8 g/dL (3.5-5.2); Globulin 2.9 g/dL (1.3-4.6); NT Pro B Type Natriuretic Pept 2101 pg/mL (0-125)
[2020-01-07 04:01] LABS: Troponin 5 2HR 44.06 ng/mL (0-10); Troponin 5 2HR Delta 0.06 ABS# (0-10)
[2020-01-07 05:03] LABS: Bacteria Urine 4+; Bilirubin Urine Neg (NEGATIVE); Blood Urine 3+ (Negative); Glucose Urine UA Norm (Normal); Ketones Urine Negative (Negative); Leukocyte Esterase Urine 2+ (Negative); Nitrate Urine Negative (Negative); Protein Urine 2+ (Negative); RBC Urine 25-40 /hpf (0-2); Squamous Epithelial Cell Urine 0-4 (0-5); Urine Appearance Cloudy (CLEAR); Urine Color Yellow (Yellow); Urobilinogen Urine Norm (Negative); WBC Urine 0-4 /hpf (0-5); pH Urine 5 (5-7)
[2020-01-07 05:04] LABS: Add Urine Culture? Yes
--- NOTE | 2020-01-07 07:37 | PC.NURSE ---
Patient on Unit.
--- NOTE | 2020-01-07 08:23 | PC.NURSE ---
Admission note Patient being admitted with respiratory failure, she is noted to be alert to person and place only, she resides at [facility]. She is noted to have a history of MS for several years with abnormal extension and spasticity noted to lower extremities. Per chart she is noted to have a history of an AL< CKD, Diabetes, neuromuscular dysfunction of the bladder with chronic arnold, CHF, anemia and edema. HR noted to be regular with ppp x 2, 3+ pitting edema noted to ble. Lungs noted to be diminished throughout with expiratory wheezing noted. Noted to have active bs with abd soft and non tender. She denies pain at this time. Skin is warm and dry with abrasion that is covered with optifoam to left buttock. All other skin is wamr and dry.
[2020-01-07] MEDS: ipratropium-albuterol 3 mL Neb INHALATION ×2 (08:52→21:33)
[2020-01-07] MEDS: clopidogrel 75 mg Tablet PO (09:37)
[2020-01-07] MEDS: metoprolol tartrate 25 mg Tablet PO ×2 (09:37→17:16)
[2020-01-07] MEDS: pantoprazole DR 40 mg Tablet PO (09:37)
[2020-01-07] MEDS: docusate sodium 100 mg Capsule PO ×2 (09:37→17:16)
[2020-01-07] MEDS: citalopram 20 mg Tablet PO (09:37)
[2020-01-07] MEDS: amlodipine 10 mg Tablet PO (09:37)
[2020-01-07] MEDS: isosorbide mononitrate ER 60 mg Tablet PO (09:37)
[2020-01-07] MEDS: azithromycin 250 mg Tablet 500 MG PO (09:37)
[2020-01-07] MEDS: cefTRIAXone 1,000 MG in sodium chloride 0.9% (plus) 50 ML 100 MG IV (09:38)
[2020-01-07] MEDS: heparin 5,000 unit/mL INJ 1 mL 5000 UNIT SUBCUT ×3 (09:38→22:56)
--- NOTE | 2020-01-07 11:32 | PC.CHAP ---
Pastoral Care Encounter/Spiritual Assessment Type of Contact [] Declined mounter automatic visit [] Patient/Family/Request visit [] Outpatient visit [] Follow-up visit [] Physician referral [] Code/Alert [] Routine visit [] Staff referral [] Actively dying [] Patient sleeping [] Family support [] [] Out of room [] Palliative care [] [] Receiving care in room [] Pre-surgical visit [] Trauma [] Long length of stay [] ICU visit [x] Other: on life suopport Relational/Emotional Strength [] Patient feels connected with others/family/visitors/staff [] Distress [] Loneliness/isolation [] Abandonment Spirituality of Patient [] Person of Yamini [] Attends Sabianism of their Yamini [] Believes in Prayer [] Reads Bible or Methodist materials [] There are Spiritual issues to be addressed Metal Sprayer Protective Coating Interventions [] Prayer [] Active listening [] Non-anxious presence [] Spiritual/emotional support [] Crisis/trauma care [] Spiritual counseling [] Bereavement support [] Provided bereavement packet [] Provided Bible/devotional materials [] Provided toy/stuffed animal, coloring book to patient or family member [] Provided Communion [] Anointing/[place]ola [] Salvation [] Completed spiritual assessment [] Other: Impact on Illness or Injury [] Angry [] Fearful [] Anxious [] Often cries [] Exhaustion [] Unable to work [] Unable to attend anglican [] Unable to walk/stand [] Unable to read [] Unable to drive [] Unable to eat/drink [] Unable to sleep [] Unable to be with family [x] Patient intubated [] Other: Summary on life support Time spent with patient 5 mins
[2020-01-07] MEDS: FUROsemide 10 mg/mL SDV 4mL 40 MG IVP (14:56)
--- NOTE | 2020-01-07 18:57 | P.PN_ITS ---
Subjective Subjective: Interval history: She is feeling a little better. Having breakfast. Denies having cough. Vitals/I&O/Wt Last Vital Signs Temp 97.4 F L 01/07/20 15:41 Pulse 69 01/07/20 16:33 Resp 16 01/07/20 15:41 BP 180/79 01/07/20 15:41 Pulse Ox 94 01/07/20 16:33 01/07/20 01/07/20 01/07/20 06:59 14:59 22:59 Intake Total 480 / 480 290 / 770 Output Total 1300 / 1300 1150 / 2450 Balance -820 / -820 -860 / -1680 Weight last 48 hrs Weight 90.718 kg Physical Exam Const: COMMON NORMALS: no apparent distress and oriented x3 OTHER: Generally weak, although this appears to be chronic with MS HENMT: COMMON NORMALS: oropharynx normal Neck/C-Spine: COMMON NORMALS: no JVD Resp: COMMON NORMALS: normal respiratory effort AUSCULTATION: rhonchi, wheezes and diminished lung sounds Cardio: COMMON NORMALS: no JVD, regular rhythm, S1 normal heart sound, S2 normal heart sound and no murmurs RHYTHM: regular rhythm HEART SOUNDS: S1 normal and S2 normal GI: COMMON NORMALS: normal to inspection, nondistended, normoactive bowel sounds, soft to palpation and non-tender PALPATION: Yes soft Extremity: COMMON NORMALS: no joint enlargement GENERAL: Yes edema (2+) OTHER: Chronically not mobile, with lower extremity contractures Neuro: COMMON NORMALS: oriented x3 and moves all extremities Skin: COMMON NORMALS: no rashes or lesions noted GENERAL SKIN EXAM: no rashes or lesions noted Data : 01/07/20 02:21 01/07/20 02:21 Micro: Microbiology 01/07/20 10:25 Legionella Urinary Antigen - Final Urine,Voided Bacterial Antigens - Final 01/07/20 02:08 Blood Culture - Preliminary Blood SPECIMEN COLLECTED 01/07/20 02:08 Blood Culture - Preliminary Blood SPECIMEN COLLECTED A&P Assessment and plan (1) Respiratory failure with hypoxia and hypercapnia: Subjectively she is feeling little bit better. On nasal cannula during my evaluation, weaned down off BiPAP. Awake and alert. Suspected secondary to left lower lobe pneumonia, CHF exacerbation, possibly also underlying chronic COPD with visible emphysema on imaging. Continue antibiotic, Lasix, breathing treatments. Status: Acute Qualifiers: Chronicity: acute Qualified Code(s): J96.01 - Acute respiratory failure with hypoxia; J96.02 - Acute respiratory failure with hypercapnia (2) Acute exacerbation of congestive heart failure: Continue diuresis. No chest pain. Mild troponin elevation without definitive peak/rise. Status: Acute Qualifiers: Heart failure type: unspecified Qualified Code(s): I50.9 - Heart failure, unspecified (3) Chronic suprapubic catheter: With microscopic hematuria on UA. Status: Acute (4) Hypertensive emergency: Blood pressure improved, although fluctuating, and higher this afternoon. Continue to monitor, amlodipine, Lasix, Imdur, metoprolol, cardiac diet. Status: Acute (5) Community acquired pneumonia: Continue antibiotics. Oxygen support. Status: Acute Additional A&P Information Chronic kidney disease stage III Chronic normocytic anemia Attestations Medical Necessity Statement*: Continue admission for assessment and management of acute hypoxic and hypercapnic respiratory failure, pneumonia, CHF exacerbation, poorly controlled hypertension in the setting of chronic medical comorbidities. 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
[2020-01-08] VITALS (10 sets, daily range): BP systolic 159–193; BP diastolic 70–94; PULSE 54–82; RESP 15–20; TEMP 36.3–36.8; O2SAT 84–97
[2020-01-08] MEDS: FUROsemide 10 mg/mL SDV 4mL 40 MG IVP (02:46)
[2020-01-08 05:21] LABS: Basophils % 0.7 %; Eosinophils # 0.1 10^3/uL (0.0-0.8); Eosinophils % 2.3 %; Hematocrit 31.5 % (37.0-47.0); Hemoglobin 9.5 g/dL (11.5-15.3); Lymphocytes # 1.1 10^3/uL (0.8-4.8); Lymphocytes % 24.4 %; Mean Corpuscular HGB Conc 30.2 g/dL (30.0-36.0); Mean Corpuscular Hemoglobin 28.8 pg (28.0-34.0); Mean Corpuscular Volume 95.5 fL (81-99); Mean Platelet Volume 10.8 fL (7.4-10.4); Monocytes # 0.3 10^3/uL (0.2-0.9); Monocytes % 7.5 %; Neutrophils # 2.8 10^3/uL (1.8-7.7); Neutrophils % 64.6 %; Nucleated Red Blood Cells % 0 %; Platelet Count 150 10^3/cmm (130-400); Red Cell Distribution Width 14.7 % (12.1-15.1); White Blood Count 4.4 10^3/uL (4.0-10.0)
[2020-01-08 05:38] LABS: Anion Gap 13.5 (5-19); Blood Urea Nitrogen 24 mg/dL (8-23); Calcium 9.3 mg/dL (8.5-10.5); Carbon Dioxide 31 mmol/L (22-29); Chloride 103 mmol/L (98-107); Glucose 82 mg/dL (65-115); Osmolality Calculated 294 mOsm/kg (285-295); Potassium 3.5 mmol/L (3.5-5.1); Sodium 144 mmol/L (136-145)
[2020-01-08] MEDS: ipratropium-albuterol 3 mL Neb INHALATION (08:20)
[2020-01-08] MEDS: clopidogrel 75 mg Tablet PO (09:06)
[2020-01-08] MEDS: citalopram 20 mg Tablet PO (09:06)
[2020-01-08] MEDS: docusate sodium 100 mg Capsule PO (09:06)
[2020-01-08] MEDS: metoprolol tartrate 25 mg Tablet PO (09:06)
[2020-01-08] MEDS: amlodipine 10 mg Tablet PO (09:06)
[2020-01-08] MEDS: polyethylene glycol 3350 Pkt 17 gm PO (09:07)
[2020-01-08] MEDS: cefTRIAXone 1,000 MG in sodium chloride 0.9% (plus) 50 ML 100 MG IV (09:07)
[2020-01-08] MEDS: pantoprazole DR 40 mg Tablet PO (09:07)
[2020-01-08] MEDS: isosorbide mononitrate ER 60 mg Tablet PO (09:07)
[2020-01-08] MEDS: heparin 5,000 unit/mL INJ 1 mL 5000 UNIT SUBCUT (09:07)
[2020-01-08] MEDS: azithromycin 250 mg Tablet 500 MG PO (09:07)
--- NOTE | 2020-01-08 09:56 | PC.CHAP ---
Pastoral Care Encounter/Spiritual Assessment Type of Contact [] Declined first officer visit [] Patient/Family/Request visit [] Outpatient visit [] Follow-up visit [] Physician referral [] Code/Alert [x] Routine visit [] Staff referral [] Actively dying [] Patient sleeping [] Family support [] [] Out of room [] Palliative care [] [] Receiving care in room [] Pre-surgical visit [] Trauma [] Long length of stay [] ICU visit [] Other: Relational/Emotional Strength [] Patient feels connected with others/family/visitors/staff [] Distress [] Loneliness/isolation [] Abandonment Spirituality of Patient [] Person of Yamini [] Attends Yazidism of their Yamini [x] Believes in Prayer [] Reads Bible or Anglican materials [] There are Spiritual issues to be addressed Customer Service Analyst Interventions [x] Prayer [] Active listening [] Non-anxious presence [] Spiritual/emotional support [] Crisis/trauma care [] Spiritual counseling [] Bereavement support [] Provided bereavement packet [] Provided Bible/devotional materials [] Provided toy/stuffed animal, coloring book to patient or family member [] Provided Communion [] Anointing/Menan [] Salvation [x] Completed spiritual assessment [] Other: Impact on Illness or Injury [] Angry [] Fearful [] Anxious [] Often cries [] Exhaustion [] Unable to work [] Unable to attend hindu [] Unable to walk/stand [] Unable to read [] Unable to drive [] Unable to eat/drink [] Unable to sleep [] Unable to be with family [] Patient intubated [] Other: Summary Patient resting well Time spent with patient 5 min
--- NOTE | 2020-01-08 13:07 | PM.DCS ---
Discharge Providers Date of Admission: 01/07/20 05:49 Date of Discharge: January 08, 2020 Attending Provider at Admission: Nima Chen MD Attending Provider at Discharge: Alexys Latif Primary Care Provider: Svetlana Ware MD Diagnoses at Discharge Discharge Diagnosis (1) Respiratory failure with hypoxia and hypercapnia: Status: Acute Qualifiers: Chronicity: acute Qualified Code(s): J96.01 - Acute respiratory failure with hypoxia; J96.02 - Acute respiratory failure with hypercapnia (2) Acute exacerbation of congestive heart failure: Status: Acute Qualifiers: Heart failure type: unspecified Qualified Code(s): I50.9 - Heart failure, unspecified (3) Chronic suprapubic catheter: Status: Acute (4) Hypertensive emergency: Status: Acute (5) Community acquired pneumonia: Status: Acute Reason for Visit Reason for Visit: Reason For Visit: HYPERCARBIC RESP FAILURE Hospital Course Hospital Course: Very pleasant 74-year-old lady with MS, immobility, neurogenic bladder, suprapubic catheter, diastolic CHF, HTN, was admitted due to poorly controlled blood pressure, with hypertensive urgency on presentation blood pressure 240/118, also noted in acute diastolic congestive heart failure exacerbation, as well as with left lower lobe community-acquired pneumonia. Initial blood pressure gradually declined with IV Lasix and Nitropaste, initially also due to hypercapnic respiratory failure and hypoxia was placed on BiPAP. Received treatment with antibiotics, IV Lasix, breathing treatments. Weaned off BiPAP quickly, and gradually has been coming down on oxygen requirement. Currently down to 2 L nasal cannula. Normally does not require oxygen. She is feeling better. Metoprolol was initially started in the hospital, however, heart rates are slow in the 50s, and with acute CHF for now we will hold off on additional metoprolol. Blood pressure still variable, occasionally going up into 190s. Will add hydralazine starting at 10 mg 3 times daily in addition to amlodipine, Lasix is also kept at the extra dose to continue treatment of CHF exacerbation. For the next 4 days in addition to 60 mg her usual morning dose, will continue on 40 mg in the afternoon. Please reassess volume status and adjust or extend diuretic as necessary. She will complete a course of antibiotic with Levaquin. She denies having any cough with food or drink, but please maintain aspiration precautions at all times. Please follow-up chest x-ray in 6 weeks for resolution of the consolidation left lower lobe. Of note emphysema seen on imaging. Once she is back to baseline consider additional evaluation by pulmonary function testing. Also noted urinary tract infection with 70-80% of currently growing gram-negative rods. Final culture result will need to be followed up, antibiotic adjusted if needed. Physical Exam Const: COMMON NORMALS: no apparent distress and oriented x3 OTHER: Generally weak, although this appears to be chronic with MS HENMT: COMMON NORMALS: oropharynx normal Neck/C-Spine: COMMON NORMALS: no JVD Resp: COMMON NORMALS: normal respiratory effort and clear to auscultation bilaterally AUSCULTATION: clear to auscultation bilaterally Cardio: COMMON NORMALS: no JVD, regular rhythm, S1 normal heart sound, S2 normal heart sound and no murmurs RHYTHM: regular rhythm HEART SOUNDS: S1 normal and S2 normal GI: COMMON NORMALS: normal to inspection, nondistended, normoactive bowel sounds, soft to palpation and non-tender PALPATION: Yes soft Extremity: COMMON NORMALS: no joint enlargement GENERAL: Yes edema (2+) OTHER: Chronically not mobile, with lower extremity contractures Neuro: COMMON NORMALS: oriented x3 and moves all extremities Skin: COMMON NORMALS: no rashes or lesions noted GENERAL SKIN EXAM: no rashes or lesions noted Discharge Data Data Completed and Pending: Completed Studies During Hospitalization Category Date Time Status XR chest 1V celso ble [id number] Stat Exams 01/07/20 01:37 Completed Pending at discharge Category Date Time Status Blood Culture Sta t Lab 01/07/20 02:08 Results Sputum Culture an d Gram Stain Stat Lab 01/07/20 07:50 Uncollected Urine Culture Sta t Lab 01/07/20 04:16 Results Labs from last 24 hours 01/08/20 01/08/20 01/07/20 04:52 04:52 04:16 WBC 4.4 RBC 3.30 L Hgb 9.5 L Hct 31.5 L MCV 95.5 MCH 28.8 MCHC 30.2 RDW 14.7 Plt Count 150 MPV 10.8 H Neut % (Auto) 64.6 Lymph % (Auto) 24.4 Bradley % (Auto) 7.5 Eos % (Auto) 2.3 Baso % (Auto) 0.7 Neut # (Auto) 2.8 Lymph # (Auto) 1.1 Bradley # (Auto) 0.3 Eos # (Auto) 0.1 Baso # (Auto) 0.0 Nucleated RBC % (a uto) 0 Nucleated RBCs # 0.0 Sodium 144 Potassium 3.5 Chloride 103 Carbon Dioxide 31 H Anion Gap 13.5 BUN 24 H Creatinine 2.0 H Glucose 82 Calculated Osmolal ity 294 Calcium 9.3 Urine Color Yellow Urine Appearance Cloudy Urine pH 5 Ur Specific Gravit y 1.010 Urine Protein 2+ H Urine Glucose (UA) Norm Urine Ketones Negative Urine Blood 3+ H Urine Nitrate Negative Urine Bilirubin Neg Urine Urobilinogen Norm Ur Leukocyte Justine ase 2+ H Urine RBC 25-40 H Urine WBC 0-4 H Ur Squamous Epith Cells 0-4 H Urine Bacteria 4+ H Urine Yeast 2+ H Vitals: Last Vital Signs Temp 97.4 F L 01/08/20 11:39 Pulse 59 L 01/08/20 11:39 Resp 15 01/08/20 11:39 BP 159/70 01/08/20 11:39 Pulse Ox 84 L 01/08/20 12:54 Discharge Plan Discharge Patient Disposition: Xfer SNF Condition: Stable Prescriptions: New ipratropium-albuterol 0.5 mg-3 mg(2.5 mg base)/3 mL Solution For Nebulization 3 ml inhalation Q6H PRN (Reason: Shortness Of Breath) Qty: 90 RF: 0 furosemide 40 mg tablet 40 mg PO DAILY@1400 Qty: 4 RF: 0 hydralazine 10 mg tablet 10 mg PO TID Qty: 90 RF: 0 levofloxacin [Levaquin] 750 mg tablet 750 mg PO DAILY 6 Days Qty: 6 RF: 0 Continued Prilosec OTC 20 mg tablet,delayed release (DR/EC) 20 mg PO BID RF: 0 albuterol sulfate 2.5 mg /3 mL (0.083 %) solution for nebulization 2.5 mg INHALATION Q4H PRN (Reason: Shortness Of Breath) RF: 0 methenamine hippurate 1 gram tablet 1 gm PO BID RF: 0 polyethylene glycol 3350 [Miralax] 17 gram/dose powder 17 gm PO DAILY RF: 0 docusate sodium [Colace] 100 mg capsule 100 mg PO BID RF: 0 acetaminophen 650 mg suppository 650 mg AK Q4H PRN (Reason: Pain) RF: 0 bisacodyl [Dulcolax (bisacodyl)] 10 mg suppository 10 mg AK PRN RF: 0 magnesium hydroxide [Milk of Magnesia] 400 mg/5 mL suspension See Rx Instructions .ROUTE .COMPLEX RF: 0 acetaminophen [Tylenol] 325 mg tablet 325 - 650 mg PO Q4H PRN (Reason: Pain) RF: 0 isosorbide mononitrate 60 mg tablet extended release 24 hr 60 mg PO DAILY RF: 0 clopidogrel 75 mg tablet 75 mg PO DAILY RF: 0 cholecalciferol (vitamin D3) 1,000 unit capsule 3,000 unit PO DAILY RF: 0 diazepam [Valium] 10 mg tablet 10 mg PO BEDTIME RF: 0 furosemide [Lasix] 20 mg tablet 60 mg PO DAILY RF: 0 potassium chloride 20 mEq tablet extended release 20 meq PO DAILY RF: 0 phenazopyridine [Pyridium] 200 mg tablet 200 mg PO TID PRN (Reason: unknown) RF: 0 Celexa 20 mg Tablet 20 mg PO DAILY RF: 0 bisacodyl 5 mg Tablet,Delayed Release (Dr/Ec) 10 mg PO DAILY PRN (Reason: Constipation) RF: 0 amlodipine 10 mg tablet 10 mg PO DAILY Qty: 30 RF: 0 Discharge Orders: Discharge Order (Routine); Ordered 01/08/20 Ordered By: Alexys Latif Referrals: Svetlana Ware MD [Primary Care Provider] - 4-7 days Discharge Diet: Cardiac Discharge Activity: Resume usual activity and Increase activity as tolerated Activity Restrictions/Additional Instructions: Please follow-up chest x-ray in about 6 weeks to confirm resolution of pneumonia. Oxygen support 2 L/min, titrated as needed to goal saturation 92%. Monitor blood pressure 3 times daily. Reposition frequently. Strict aspiration precautions. Please reassess volume status, adjust diuretic therapy as appropriate. For now given extra doses of Lasix for the next 4 days, 40 mg in the afternoon in addition to the prior morning 60 mg. Discharge Attestations Time Spent in Discharge Care*: greater than 30 min Quality Metrics Clinical Quality Measures During this hospital stay, did patient experience: None Coding Level of Care Code Acute Tablet Making Machine Operator Helper for Francis Davis Diagnoses Respiratory failure with hypoxia and hypercapnia J96.01; J96.02 Chronicity: acute Acute exacerbation of congestive heart failure I50.9 Heart failure type: unspecified Chronic suprapubic catheter Z93.59 Hypertensive emergency I16.1 Community acquired pneumonia J18.9
--- NOTE | 2020-01-08 14:35 | PC.NURSE ---
Report called to Lisette JIMENEZ at [facility] at this time.
--- NOTE | 2020-01-08 15:12 | PC.NURSE ---
Patient transported back to [facility] by their transport van. Patient is A&Ox3. Respirations even and non-labored on 2 litters of oxygen. Patient discharge information given to transporter [facility] [facility] [place] Lift pad [place] back with patient. They will bring it back to the hospital.
== END 2020-01-08 15:16 | disposition skilled nursing facility (03) | DRG 291 ==
LOC: ER 06:23 → MEDSURG 06:23
PROVIDERS: Admitting Provider Internal Medicine; Emergency Provider Emergency Medicine; Family Provider Family Medicine; PCP Family Medicine; Visit Provider Internal Medicine
DX: I13.0 Hypertensive heart and chronic kidney disease with heart failure and stage 1 through stage 4 chronic kidney disease, or unspecified chronic kidney disease (principal); I50.33 Acute on chronic diastolic (congestive) heart failure; J96.01 Acute respiratory failure with hypoxia; J96.02 Acute respiratory failure with hypercapnia; J18.9 Pneumonia, unspecified organism; I16.1 Hypertensive emergency; N18.3 Chronic kidney disease, stage 3 (moderate); E11.22 Type 2 diabetes mellitus with diabetic chronic kidney disease; G35 Multiple sclerosis; N31.9 Neuromuscular dysfunction of bladder, unspecified; Z96.0 Presence of urogenital implants; Z87.440 Personal history of urinary (tract) infections; I25.10 Atherosclerotic heart disease of native coronary artery without angina pectoris; Z95.5 Presence of coronary angioplasty implant and graft; Z66 Do not resuscitate; D63.1 Anemia in chronic kidney disease; J43.9 Emphysema, unspecified; Z79.02 Long term (current) use of antithrombotics/antiplatelets
CPT/HCPCS: 12345; 36415; 36600; 71045; 80048; 80053; 81001; 82803; 83605; 83735; 83880; 84484; 85025; 85610; 86403; 87040; 87077; 87086; 87186; 87449; 87804; 93005; 94640; 94660; 96372; 96374; 96375; 99282; J0696; J1644; J1940; J2543; Q0144

== ENCOUNTER 2020-02-13 20:31 | Inpatient (IN) | payer MEDICARE, BC, MEDICAID, SELFPAY ==
[2020-02-13] VITALS (21 sets, daily range): BP systolic 184–204; BP diastolic 99–139; PULSE 63–97; RESP 14–34; TEMP 36.6; O2SAT 94–97; BMI 44.2
--- NOTE | 2020-02-13 20:48 | PC.NURSE ---
EKG done at 2045 and shown to ER doctor
--- NOTE | 2020-02-13 20:50 | ED_ITS ---
HPI - SOB/Dyspnea General: Chief Complaint: Shortness of Breath/Dyspnea Stated Complaint: CHF Time Seen by Provider: 02/13/20 20:45 History of Present Illness: HPI Narrative: 74-year-old female presents emergency room with complaint of shortness of breath. Patient presents from snf and [place] she is listed as a Do Not Recussitate. Her is accompanying her in the emergency emergency room. She denies any germaine n but she is difficult to get any significant history from she had been fluid overloaded the last couple days of tried some IM Lasix here without significant results her reports he was able to visit her and see her through the window at the snf and earlier today she was actually eating and drinking using on her own. She is clearly not capable that now. Review of Systems General: Reports: ROS unobtainable due to medical condition and ROS unobtainable due to mental status [facility] ED PFSH: Medical History Abnormal renal function Acute worsening of stage 3 chronic kidney disease Diabetes Heart failure with preserved ejection fraction Multiple sclerosis Neurogenic bladder Recurrent UTI Status post fracture of femur Urinary retention Surgical History Chronic suprapubic catheter History of History of heart artery stent Drug-eluting stent obtuse marginal and distal left circumflex, 10/13/2008, first diagonal branch and anterior descending Status post cataract extraction Status post cholecystectomy Status post hysterectomy Family History Mother , AT AGE 83-[place] No problems noted. Father , OF APPARENT TRACHEAL OBSTRUCTION No problems noted. Social History Smoking and tobacco status: former smoker Alcohol intake: never Marital status: Current occupational status: disabled Current gender identity: Female Physical Exam Const: ORIENTATION/CONSCIOUSNESS: Yes awake HENMT: OTHER: Oral mucosa dry mouth breathing Neck/C-Spine: COMMON NORMALS: no JVD Lymph: LYMPHATIC: no lymphadenopathy noted and no lymphedema noted Resp: COMMON NORMALS: normal respiratory effort, No retractions, No use of accessory muscles and clear to auscultation bilaterally AUSCULTATION: clear to auscultation bilaterally Cardio: COMMON NORMALS: no JVD, regular rate, regular rhythm and No murmurs present (Cardio) RATE: regular rate RHYTHM: regular rhythm GI: COMMON NORMALS: Soft to palpation and No hepatosplenomegaly present AUSCULTATION: Yes normoactive bowel sounds PALPATION: Yes Soft to palpation, No Tenderness to palpation present (GI), No Guarding due to palpation present (GI) and Yes No hepatosplenomegaly present Extremity: COMMON NORMALS: normal to inspection, capillary refill normal, no clubbing, cyanosis or edema, no calf tenderness and no pedal edema Skin: COMMON NORMALS: no rashes or lesions noted GENERAL SKIN EXAM: no rashes or lesions noted Course Vital Signs: Vital signs: Vital Signs Temperature 97.9 F 02/13/20 20:42 Pulse Rate 88 02/13/20 22:39 Respiratory Rate 20 H 02/13/20 22:39 Blood Pressure 202/102 02/13/20 22:58 Pulse Oximetry 95 02/13/20 22:58 MDM - SOB/Dyspnea MDM Narrative: Medical decision making narrative: Reviewed with Dr. Paz he will accept the patient on his services. See the orders he is in acute congestive heart failure and continues to require aggressive intervention including diuretics Cardene drip and BiPAP Lab Data: Labs: Lab Results 02/13/20 02/13/20 02/13/20 Range/Units 21:10 21:10 21:10 WBC 6.3 (4.0-10.0) 10^3/ uL RBC 3.39 L (4.1-5.3) 10^6/u L Hgb 9.9 L (11.5-15.3) g/dL Hct 33.6 L (37.0-47.0) % MCV 99.1 H (81-99) fL MCH 29.2 (28.0-34.0) pg MCHC 29.5 L (30.0-36.0) g/dL RDW 14.4 (12.1-15.1) % Plt Count 141 (130-400) 10^3/c mm MPV 10.5 H (7.4-10.4) fL Neut % (Auto) 81.5 % Lymph % (Auto) 11.0 % Isabela % (Auto) 5.4 % Eos % (Auto) 1.1 % Baso % (Auto) 0.5 % Neut # (Auto) 5.2 (1.8-7.7) 10^3/u L Lymph # (Auto) 0.7 L (0.8-4.8) 10^3/u L Isabela # (Auto) 0.3 (0.2-0.9) 10^3/u L Eos # (Auto) 0.1 (0.0-0.8) 10^3/u L Baso # (Auto) 0.0 (0.0-0.1) 10^3/u L Nucleated RBC % (a uto) 0 % Nucleated RBCs # 0.0 /100WBC Specimen Type Arterial Sample Site Radial, right ABG pH 7.36 (7.35-7.45) ABG pCO2 56.5 H (35-45) mmHg ABG pO2 78.0 L (80.0-100.0) mmH g ABG HCO3 31.9 H (22-26) mmol/L ABG O2 Saturation 96.8 ABG Base Excess 5.2 H (-2.0-2.0) mmol/ L Don[place]on Test N/a A-a O2 Gradient 64.1 H (5-10) mmHg Hematocrit 32.6 L (37-47) % Hgb O2 Saturation 94.6 L (95-100) % Carboxyhemoglobin 1.4 (0.4-20.1) %THgb Methemoglobin 0.8 (0.4-1.5) % Total Hemoglobin 10.6 L (12-16) g/dL Sodium 144.0 H 142 (131-143) mmol/L Potassium 4.4 4.5 (3.5-5.0) mmol/L Glucose 117.0 H 120 H (70-115) mg/dL Ionized Calcium 1.2 (1.1-1.4) mmol/L O2 Delivery Device Bipap FiO2 30.0 % Information Systems Security Analyst ID [id number] Chloride 101 (98-107) mmol/L Carbon Dioxide 29 (22-29) mmol/L Anion Gap 16.5 (5-19) BUN 23 (8-23) mg/dL Creatinine 1.8 H (0.5-0.9) mg/dL Calculated Osmolal ity 292 (285-295) mOsm/k g Lactate (0.5-2.2) mmol/L Calcium 9.1 (8.5-10.5) mg/dL Total Bilirubin 0.2 (0.15-1.2) mg/dL AST 19 (0-32) U/L ALT 25 (0-33) U/L Alkaline Phosphata se 124 H (35-105) IU/L Troponin T Baselin e (0-10) ng/mL NT-Pro-B Natriuret Pep 4941 H (0-125) pg/mL Total Protein 6.6 (6.6-8.7) g/dL Albumin 4.0 (3.5-5.2) g/dL Globulin 2.6 (1.3-4.6) g/dL Lipase 66 H (13-60) U/L Urine Color (Yellow) Urine Appearance (CLEAR) Urine pH (5-7) Ur Specific Gravit y (1.005-1.030) Urine Protein (Negative) Urine Glucose (UA) (Normal) Urine Ketones (Negative) Urine Blood (Negative) Urine Nitrate (Negative) Urine Bilirubin (NEGATIVE) Urine Urobilinogen (Negative) mg/dL Ur Leukocyte Justine ase (Negative) Urine RBC (0-2) /hpf Urine WBC (0-5) /hpf Ur Squamous Epith Cells (0-5) Urine Bacteria (NONE) Urine Yeast 02/13/20 02/13/20 02/13/20 Range/Units 21:10 21:10 22:07 WBC (4.0-10.0) 10^3/ uL RBC (4.1-5.3) 10^6/u L Hgb (11.5-15.3) g/dL Hct (37.0-47.0) % MCV (81-99) fL MCH (28.0-34.0) pg MCHC (30.0-36.0) g/dL RDW (12.1-15.1) % Plt Count (130-400) 10^3/c mm MPV (7.4-10.4) fL Neut % (Auto) % Lymph % (Auto) % Isabela % (Auto) % Eos % (Auto) % Baso % (Auto) % Neut # (Auto) (1.8-7.7) 10^3/u L Lymph # (Auto) (0.8-4.8) 10^3/u L Isabela # (Auto) (0.2-0.9) 10^3/u L Eos # (Auto) (0.0-0.8) 10^3/u L Baso # (Auto) (0.0-0.1) 10^3/u L Nucleated RBC % (a uto) % Nucleated RBCs # /100WBC Specimen Type Arterial Sample Site Radial, right ABG pH 7.37 (7.35-7.45) ABG pCO2 53.3 H (35-45) mmHg ABG pO2 83.7 (80.0-100.0) mmH g ABG HCO3 30.7 H (22-26) mmol/L ABG O2 Saturation 97.6 ABG Base Excess 4.4 H (-2.0-2.0) mmol/ L Donavon Test N/a A-a O2 Gradient 62.2 H (5-10) mmHg Hematocrit 32.2 L (37-47) % Hgb O2 Saturation 95.3 (95-100) % Carboxyhemoglobin 1.3 (0.4-20.1) %THgb Methemoglobin 1.0 (0.4-1.5) % Total Hemoglobin 10.5 L (12-16) g/dL Sodium 144.0 H (131-143) mmol/L Potassium 4.3 (3.5-5.0) mmol/L Glucose 118.0 H (70-115) mg/dL Ionized Calcium 1.2 (1.1-1.4) mmol/L O2 Delivery Device Bipap FiO2 30.0 % Information Systems Security Analyst ID [id number] Chloride (98-107) mmol/L Carbon Dioxide (22-29) mmol/L Anion Gap (5-19) BUN (8-23) mg/dL Creatinine (0.5-0.9) mg/dL Calculated Osmolal ity (285-295) mOsm/k g Lactate 0.7 (0.5-2.2) mmol/L Calcium (8.5-10.5) mg/dL Total Bilirubin (0.15-1.2) mg/dL AST (0-32) U/L ALT (0-33) U/L Alkaline Phosphata se (35-105) IU/L Troponin T Baselin e 47 H (0-10) ng/mL NT-Pro-B Natriuret Pep (0-125) pg/mL Total Protein (6.6-8.7) g/dL Albumin (3.5-5.2) g/dL Globulin (1.3-4.6) g/dL Lipase (13-60) U/L Urine Color (Yellow) Urine Appearance (CLEAR) Urine pH (5-7) Ur Specific Gravit y (1.005-1.030) Urine Protein (Negative) Urine Glucose (UA) (Normal) Urine Ketones (Negative) Urine Blood (Negative) Urine Nitrate (Negative) Urine Bilirubin (NEGATIVE) Urine Urobilinogen (Negative) mg/dL Ur Leukocyte Justine ase (Negative) Urine RBC (0-2) /hpf Urine WBC (0-5) /hpf Ur Squamous Epith Cells (0-5) Urine Bacteria (NONE) Urine Yeast 02/13/20 Range/Units 22:30 WBC (4.0-10.0) 10^3/ uL RBC (4.1-5.3) 10^6/u L Hgb (11.5-15.3) g/dL Hct (37.0-47.0) % MCV (81-99) fL MCH (28.0-34.0) pg MCHC (30.0-36.0) g/dL RDW (12.1-15.1) % Plt Count (130-400) 10^3/c mm MPV (7.4-10.4) fL Neut % (Auto) % Lymph % (Auto) % Isabela % (Auto) % Eos % (Auto) % Baso % (Auto) % Neut # (Auto) (1.8-7.7) 10^3/u L Lymph # (Auto) (0.8-4.8) 10^3/u L Isabela # (Auto) (0.2-0.9) 10^3/u L Eos # (Auto) (0.0-0.8) 10^3/u L Baso # (Auto) (0.0-0.1) 10^3/u L Nucleated RBC % (a uto) % Nucleated RBCs # /100WBC Specimen Type Sample Site ABG pH (7.35-7.45) ABG pCO2 (35-45) mmHg ABG pO2 (80.0-100.0) mmH g ABG HCO3 (22-26) mmol/L ABG O2 Saturation ABG Base Excess (-2.0-2.0) mmol/ L Donavon Test A-a O2 Gradient (5-10) mmHg Hematocrit (37-47) % Hgb O2 Saturation (95-100) % Carboxyhemoglobin (0.4-20.1) %THgb Methemoglobin (0.4-1.5) % Total Hemoglobin (12-16) g/dL Sodium (131-143) mmol/L Potassium (3.5-5.0) mmol/L Glucose (70-115) mg/dL Ionized Calcium (1.1-1.4) mmol/L O2 Delivery Device FiO2 % Information Systems Security Analyst ID Chloride (98-107) mmol/L Carbon Dioxide (22-29) mmol/L Anion Gap (5-19) BUN (8-23) mg/dL Creatinine (0.5-0.9) mg/dL Calculated Osmolal ity (285-295) mOsm/k g Lactate (0.5-2.2) mmol/L Calcium (8.5-10.5) mg/dL Total Bilirubin (0.15-1.2) mg/dL AST (0-32) U/L ALT (0-33) U/L Alkaline Phosphata se (35-105) IU/L Troponin T Baselin e (0-10) ng/mL NT-Pro-B Natriuret Pep (0-125) pg/mL Total Protein (6.6-8.7) g/dL Albumin (3.5-5.2) g/dL Globulin (1.3-4.6) g/dL Lipase (13-60) U/L Urine Color Yellow (Yellow) Urine Appearance Cloudy (CLEAR) Urine pH 6.5 (5-7) Ur Specific Gravit y 1.010 (1.005-1.030) Urine Protein 3+ H (Negative) Urine Glucose (UA) Norm (Normal) Urine Ketones Negative (Negative) Urine Blood 2+ H (Negative) Urine Nitrate Negative (Negative) Urine Bilirubin Neg (NEGATIVE) Urine Urobilinogen Norm (Negative) mg/dL Ur Leukocyte Justine ase 2+ H (Negative) Urine RBC 10-15 H (0-2) /hpf Urine WBC 5-10 H (0-5) /hpf Ur Squamous Epith Cells 0-4 H (0-5) Urine Bacteria 2+ H (NONE) Urine Yeast 2+ H Discharge Plan Discharge Patient Disposition: Admitted As Inpatient Clinical Impression: Multiple sclerosis, Acute worsening of stage 3 chronic kidney disease, Diabetes, Heart failure with preserved ejection fraction, Respiratory failure with hypoxia and hypercapnia, Acute exacerbation of congestive heart failure Condition: Stable Referrals: Svetlana Ware MD [Primary Care Provider] - Coding Level of Care Code ED Commercial Sales Representative for Chg Fwd Exam Comprehensive
--- NOTE | 2020-02-13 20:53 | XR_ITS ---
WS: [id number] XR chest 1V portable [id number] REASON FOR EXAM: dyspnea/cough FINDINGS: There is again noted left pleural effusion extends to the ninth interspace. The heart is borderline enlarged with arteriosclerotic changes. The lung al appear to be well-aerated there is some chronic changes in the lower lungs on the rig ht but no definite failure changes pneumonia, pleural effusion other than described are pneumothorax. No osseous abnormalities. The hilum and apices normal. XR/XR chest 1V portable [id number] IMPRESSION: Left pleural effusion to the ninth interspace and Borderline cardiomegaly with arteriosclerotic changes.
--- NOTE | 2020-02-13 20:54 | ECG_ITS ---
Measurements Intervals [place] Rate: 88 P: 35 SD: 160 QRS: 16 QRSD: 89 T: 54 QT: 386 QTc: 469 SINUS RHYTHM Compared to ECG 01/07/2020 04:33:28 Myocardial infarct finding no longer present Electronically Signed On 02-14-2020 18:01:38 CDT by Chanelle Lambert M.D. [email or web address]
--- NOTE | 2020-02-13 21:05 | PM.HP ---
Providers/Chief Complaint Primary Care Provider: Svetlana Ware MD Chief Complaint: CHF History of Present Illness Bety Vences is a 74 year old female Medications/Allergies Home Medications Medication Instructions Recorded Confirmed Last Taken Type acetaminophen 325 mg tablet 325 - 650 mg PO Q4H PRN 09/18/19 01/28/20 Unknown History acetaminophen 650 mg rectal 650 mg AR Q4H PRN 09/18/19 01/28/20 Unknown History suppository albuterol sulfate 2.5 mg INHALATION Q4H PRN 09/18/19 01/28/20 Unknown History bisacodyl 10 mg rectal suppository 10 mg AR PRN each 09/18/19 01/28/20 Unknown History cholecalciferol (vitamin D3) 25 3,000 unit PO DAILY cap 09/18/19 01/28/20 10/12/19 History mcg (1,000 unit) capsule clopidogrel 75 mg tablet 75 mg PO DAILY tab 09/18/19 01/28/20 10/12/19 History docusate sodium 100 mg capsule 100 mg PO BID cap 09/18/19 01/28/20 10/12/19 History furosemide 20 mg tablet 60 mg PO DAILY tab 09/18/19 01/28/20 10/12/19 History magnesium hydroxide 400 mg/5 mL See Rx Instructions .ROUTE 09/18/19 01/28/20 Unknown History oral suspension .COMPLEX ml methenamine hippurate 1 gram tablet 1 gm PO BID 09/18/19 01/28/20 10/12/19 History omeprazole magnesium 20 mg 20 mg PO BID 09/18/19 01/28/20 10/12/19 History tablet,delayed release phenazopyridine 200 mg tablet 200 mg PO TID PRN 09/18/19 01/28/20 Unknown History polyethylene glycol 3350 17 17 gm PO DAILY gm 09/18/19 01/28/20 10/12/19 History gram/dose oral powder amlodipine 10 mg PO DAILY #30 tab 10/12/19 01/28/20 Unknown Rx bisacodyl 10 mg PO DAILY PRN 10/12/19 01/28/20 Unknown History furosemide 40 mg PO DAILY@1400 #4 tab 01/08/20 01/28/20 Unknown Rx hydralazine 10 mg PO TID #90 tab 01/08/20 01/28/20 Unknown History ipratropium-albuterol 3 ml INHALATION Q6H PRN #90 ml 01/08/20 01/28/20 Unknown Rx isosorbide mononitrate 60 mg 120 mg PO DAILY tab 01/17/20 01/28/20 Unknown History tablet,extended release 24 hr potassium chloride 20 mEq 20 meq PO BID tab 01/17/20 01/28/20 Unknown History tablet,extended release diazepam 10 mg tablet 10 mg PO BEDTIME tab 01/28/20 01/28/20 Unknown History Allergies Allergy/AdvReac Type Severity Reaction Status Date / Time Iodinated Contrast Media Allergy Unknown Verified 01/28/20 16:37 iodine Allergy UNKNOWN Verified 01/28/20 16:37 prednisone Allergy UNKNOWN Verified 01/28/20 16:37 PFSH Acute PFSH: Medical History Abnormal renal function Acute worsening of stage 3 chronic kidney disease Diabetes Heart failure with preserved ejection fraction Multiple sclerosis Neurogenic bladder Recurrent UTI Status post fracture of femur Urinary retention Surgical History Chronic suprapubic catheter History of History of heart artery stent Drug-eluting stent obtuse marginal and distal left circumflex, 10/13/2008, first diagonal branch and anterior descending Status post cataract extraction Status post cholecystectomy Status post hysterectomy Family History Mother , AT AGE 83-[place] No problems noted. Father , OF APPARENT TRACHEAL OBSTRUCTION No problems noted. Social History Smoking and tobacco status: former smoker Alcohol intake: never Marital status: Current occupational status: disabled Current gender identity: Female Vitals/I&O/Wt Last Vital Signs Temp 97.9 F 02/13/20 20:42 Pulse 90 02/13/20 20:42 Resp 30 H 02/13/20 20:42 BP 198/112 02/13/20 20:42 Pulse Ox 96 02/13/20 20:53 Weight last 48 hrs Weight 113.398 kg Coding Level of Care Code Acute Multimedia Project Manager for Sreeg Ryan
[2020-02-13] MEDS: morphine 4 mg/mL SDV 1 mL IVP (21:12)
[2020-02-13] MEDS: hyDRALAzine 20 mg/mL INJ 1 mL IVP (21:13)
[2020-02-13] MEDS: FUROsemide 10 mg/mL SDV 10mL 80 MG IVP (21:16)
[2020-02-13 21:17] LABS: ABG PCO2 56.5 mmHg (35-45); ABG PH Result 7.36 (7.35-7.45); Alveolar-Arterial Oxygen Gradi 64.1 mmHg (5-10); Arterial Blood Gas Hematocrit 32.6 % (37-47); Base Excess ABG 5.2 mmol/L (-2.0-2.0); Blood Gas Sample Site Radial, right; Blood Gas Sample Type Arterial; Carboxyhemoglobin 1.4 %THgb (0.4-20.1); HCO3 ABG 31.9 mmol/L (22-26); HGB O2 Sat 94.6 % (95-100); Ionized Calcium Level - ABG 1.2 mmol/L (1.1-1.4); Methemoglobin 0.8 % (0.4-1.5); Oxygen Device BIPAP; Oxygen Saturation ABG 96.8; Potassium Level - ABG 4.4 mmol/L (3.5-5.0); Total Hemoglobin 10.6 g/dL (12-16)
[2020-02-13 21:39] LABS: Basophils % 0.5 %; Eosinophils # 0.1 10^3/uL (0.0-0.8); Eosinophils % 1.1 %; Hematocrit 33.6 % (37.0-47.0); Hemoglobin 9.9 g/dL (11.5-15.3); Lymphocytes # 0.7 10^3/uL (0.8-4.8); Mean Corpuscular HGB Conc 29.5 g/dL (30.0-36.0); Mean Corpuscular Hemoglobin 29.2 pg (28.0-34.0); Mean Corpuscular Volume 99.1 fL (81-99); Mean Platelet Volume 10.5 fL (7.4-10.4); Monocytes # 0.3 10^3/uL (0.2-0.9); Monocytes % 5.4 %; Neutrophils # 5.2 10^3/uL (1.8-7.7); Neutrophils % 81.5 %; Nucleated Red Blood Cells % 0 %; Platelet Count 141 10^3/cmm (130-400); Red Blood Count 3.39 10^6/uL (4.1-5.3); Red Cell Distribution Width 14.4 % (12.1-15.1); White Blood Count 6.3 10^3/uL (4.0-10.0)
[2020-02-13 21:58] LABS: Lactate (Lactic Acid level) 0.7 mmol/L (0.5-2.2)
[2020-02-13 22:13] LABS: ABG PCO2 53.3 mmHg (35-45); ABG PH Result 7.37 (7.35-7.45); Alveolar-Arterial Oxygen Gradi 62.2 mmHg (5-10); Arterial Blood Gas Hematocrit 32.2 % (37-47); Base Excess ABG 4.4 mmol/L (-2.0-2.0); Blood Gas Sample Site Radial, right; Blood Gas Sample Type Arterial; Carboxyhemoglobin 1.3 %THgb (0.4-20.1); HCO3 ABG 30.7 mmol/L (22-26); HGB O2 Sat 95.3 % (95-100); Ionized Calcium Level - ABG 1.2 mmol/L (1.1-1.4); Oxygen Device BIPAP; Oxygen Saturation ABG 97.6; PO2 ABG 83.7 mmHg (80.0-100.0); Potassium Level - ABG 4.3 mmol/L (3.5-5.0); Total Hemoglobin 10.5 g/dL (12-16)
[2020-02-13 22:22] LABS: Troponin(5th) Baseline 47 ng/mL (0-10)
[2020-02-13 22:25] LABS: Alanine Aminotransferase 25 U/L (0-33); Alkaline Phosphatase 124 IU/L (35-105); Anion Gap 16.5 (5-19); Aspartate Amino Transferase 19 U/L (0-32); Blood Urea Nitrogen 23 mg/dL (8-23); Calcium 9.1 mg/dL (8.5-10.5); Carbon Dioxide 29 mmol/L (22-29); Chloride 101 mmol/L (98-107); Globulin 2.6 g/dL (1.3-4.6); Glucose 120 mg/dL (65-115); Lipase 66 U/L (13-60); NT Pro B Type Natriuretic Pept 4941 pg/mL (0-125); Osmolality Calculated 292 mOsm/kg (285-295); Potassium 4.5 mmol/L (3.5-5.1); Sodium 142 mmol/L (136-145); Total Bilirubin 0.2 mg/dL (0.15-1.2); Total Protein 6.6 g/dL (6.6-8.7)
--- NOTE | 2020-02-13 22:54 | ECG_ITS ---
Measurements Intervals [place] Rate: 90 P: 68 NE: 160 QRS: 32 QRSD: 94 T: 72 QT: 376 QTc: 462 SINUS RHYTHM WITH SINUS ARRHYTHMIA Compared to ECG 01/07/2020 04:33:28 Myocardial infarct finding no longer present Electronically Signed On 02-15-2020 8:12:57 CDT by Chanelle Lambert M.D. [id number]
[2020-02-13 23:02] LABS: Blood Urine 2+ (Negative); Glucose Urine UA Norm (Normal); Ketones Urine Negative (Negative); Protein Urine 3+ (Negative); Urine Appearance Cloudy (CLEAR); Urine Color Yellow (Yellow); pH Urine 6.5 (5-7)
[2020-02-13 23:03] LABS: Add Urine Culture? Yes; Add Urine Microscopic? YES; Bacteria Urine 2+; Bilirubin Urine Neg (NEGATIVE); Leukocyte Esterase Urine 2+ (Negative); Nitrate Urine Negative (Negative); Squamous Epithelial Cell Urine 0-4 (0-5); Urobilinogen Urine Norm (Negative)
--- NOTE | 2020-02-13 23:12 | PM.HP ---
Providers/Chief Complaint Primary Care Provider: Svetlana Ware MD Chief Complaint: CHF History of Present Illness Bety Vences is a 74 year old female who has history of multiple sclerosis, neurogenic bladder, suprapubic catheter, bedbound, longterm resident, was recently discharged from the hospital after management of hypertension, CHF exacerbation, hypoxic hypercarbic respiratory failure due to CHF, coming in for worsening shortness of breath and hypotension. is at the bedside who is stating that he is very upset that he is not able to see his because of this pandemic lockdown. He is stating that after her discharge from the hospital she was able to get in the wheelchair with assistance and eat on her own, but today her breathing was getting worse, she was very hypertensive and on 's request she was sent to the hospital for further evaluation. At the longterm they did not notice good urine output with the Lasix, reportedly she was given IM Lasix. At discharge she was prescribed Lasix 40 mg, hydralazine 10 mg 3 times a day and Levaquin 6-day course. Diagnostics in the ER revealed hypertensive urgency, systolic ranging around 200-220mmhg, she is afebrile, blood gas is showing normal pH, to decrease her work of breathing she is on BiPAP, x-ray showing mild CHF exacerbation with doubling of her BNP from last admission. Creatinine today 1.8 which was 2 at the time of discharge, hemoglobin 9.9 which was 9.5 on discharge, urinalysis is showing chronic pyuria however negative for nitrites Review of Systems Const: Reports: body aches and fatigue; Denies: fever(s) Eyes: Denies: change in vision ENMT: Denies: throat pain Card: Reports: swelling of feet/ankles and orthopnea; Denies: chest pain Resp: Reports: dyspnea : Denies: flank pain Musc: Denies: neck pain Skin/Breast: Reports: erythema and lesions Neuro: Reports: headache(s) Psych: Reports: anxiety and depression Endo: Denies: polyuria Altaf/Lymph: Denies: easy bruising All/Imm: Denies: urticaria Medications/Allergies Home Medications Medication Instructions Recorded Confirmed Last Taken Type acetaminophen 325 mg tablet 325 - 650 mg PO Q4H PRN 09/18/19 01/28/20 Unknown History acetaminophen 650 mg rectal 650 mg WV Q4H PRN 09/18/19 01/28/20 Unknown History suppository albuterol sulfate 2.5 mg INHALATION Q4H PRN 09/18/19 01/28/20 Unknown History bisacodyl 10 mg rectal suppository 10 mg WV PRN each 09/18/19 01/28/20 Unknown History cholecalciferol (vitamin D3) 25 3,000 unit PO DAILY cap 09/18/19 01/28/20 10/12/19 History mcg (1,000 unit) capsule clopidogrel 75 mg tablet 75 mg PO DAILY tab 09/18/19 01/28/20 10/12/19 History docusate sodium 100 mg capsule 100 mg PO BID cap 09/18/19 01/28/20 10/12/19 History furosemide 20 mg tablet 60 mg PO DAILY tab 09/18/19 01/28/20 10/12/19 History magnesium hydroxide 400 mg/5 mL See Rx Instructions .ROUTE 09/18/19 01/28/20 Unknown History oral suspension .COMPLEX ml methenamine hippurate 1 gram tablet 1 gm PO BID 09/18/19 01/28/20 10/12/19 History omeprazole magnesium 20 mg 20 mg PO BID 09/18/19 01/28/20 10/12/19 History tablet,delayed release phenazopyridine 200 mg tablet 200 mg PO TID PRN 09/18/19 01/28/20 Unknown History polyethylene glycol 3350 17 17 gm PO DAILY gm 09/18/19 01/28/20 10/12/19 History gram/dose oral powder amlodipine 10 mg PO DAILY #30 tab 10/12/19 01/28/20 Unknown Rx bisacodyl 10 mg PO DAILY PRN 10/12/19 01/28/20 Unknown History furosemide 40 mg PO DAILY@1400 #4 tab 01/08/20 01/28/20 Unknown Rx hydralazine 10 mg PO TID #90 tab 01/08/20 01/28/20 Unknown History ipratropium-albuterol 3 ml INHALATION Q6H PRN #90 ml 01/08/20 01/28/20 Unknown Rx isosorbide mononitrate 60 mg 120 mg PO DAILY tab 01/17/20 01/28/20 Unknown History tablet,extended release 24 hr potassium chloride 20 mEq 20 meq PO BID tab 01/17/20 01/28/20 Unknown History tablet,extended release diazepam 10 mg tablet 10 mg PO BEDTIME tab 01/28/20 01/28/20 Unknown History Allergies Allergy/AdvReac Type Severity Reaction Status Date / Time Iodinated Contrast Media Allergy Unknown Verified 01/28/20 16:37 iodine Allergy UNKNOWN Verified 01/28/20 16:37 prednisone Allergy UNKNOWN Verified 01/28/20 16:37 PFSH Acute PFSH: Medical History Abnormal renal function Acute worsening of stage 3 chronic kidney disease Diabetes Heart failure with preserved ejection fraction Multiple sclerosis Neurogenic bladder Recurrent UTI Status post fracture of femur Urinary retention Surgical History Chronic suprapubic catheter History of History of heart artery stent Drug-eluting stent obtuse marginal and distal left circumflex, 10/13/2008, first diagonal branch and anterior descending Status post cataract extraction Status post cholecystectomy Status post hysterectomy Family History Mother , AT AGE 83-[place] No problems noted. Father , OF APPARENT TRACHEAL OBSTRUCTION No problems noted. Social History Smoking and tobacco status: former smoker Alcohol intake: never Marital status: Current occupational status: disabled Current gender identity: Female Vitals/I&O/Wt Last Vital Signs Temp 97.9 F 02/13/20 20:42 Pulse 88 02/13/20 22:39 Resp 20 H 02/13/20 22:39 BP 202/102 02/13/20 22:58 Pulse Ox 95 02/13/20 22:58 Weight last 48 hrs Weight 113.398 kg Physical Exam Narrative: EXAM NARRATIVE: Head to toe examination Patient is currently on BiPAP settings 28/04 with good tidal volumes, No active respiratory distress She is giving 1-2 word answers, is at the bedside 3+ edema of lower extremities, No active cellulitis Suprapubic catheter draining clear urine Assisted breath sounds bilaterally without adventitious sounds S1, S2, mild features of CHF Abdomen soft, distended, bloated, nontender, bowel sounds present Patient is able to comprehend my questions Very fatigued and lethargic She is bedbound, with weak strength of her extremity Data : 02/13/20 21:10 02/13/20 21:10 Micro: Microbiology 02/13/20 21:10 Blood Culture - Preliminary Blood SPECIMEN COLLECTED 02/13/20 21:15 Blood Culture - Preliminary Blood SPECIMEN COLLECTED A&P Assessment and plan (1) Hypertensive emergency: Status: Acute (2) Acute exacerbation of congestive heart failure: Status: Acute (3) Depression: Status: Acute (4) Diabetes: Status: Acute (5) Multiple sclerosis: Status: Acute (6) Chronic suprapubic catheter: Status: Acute Additional A&P Information Hypertensive emergency causing CHF exacerbation Currently on Cardene drip Would continue her oral antihypertensives after we wean off Cardene, She might be suffering from autonomic dysfunction with underlying worsening of multiple sclerosis Acute CHF exacerbation due to hypertension Currently tolerating BiPAP Mild CHF exacerbation evident on chest x-ray, BNP has doubled from her last admission Bumex use for now COPD without acute exacerbation pH is normal Recently finished Levaquin course No active infiltrates on x-ray She is afebrile without any signs of sepsis Chronic kidney disease without acute exacerbation Creatinine improved from 2-to 1.8 Anticipating improvement with diuresis Recurrent UTIs Urinalysis has persistent pyuria I would avoid adding any antibiotics at this point No need of urine culture DVT prophylaxis not indicated because of anemia Consistent carb diet DNR/DNI Attestations Medical Necessity Statement*: She might need more than 2 midnights in the hospital currently requiring Cardene drip for hypertensive emergency causing CHF exacerbation Time Spent in Patient Care: 60 Coding Level of Care Code 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
[2020-02-13 23:18] LABS: Troponin 5 2HR 50.99 ng/mL (0-10); Troponin 5 2HR Delta 3.99 ABS# (0-10)
[2020-02-14] VITALS (56 sets, daily range): BP systolic 92–202; BP diastolic 46–90; PULSE 60–101; RESP 12–35; TEMP 36.6; O2SAT 17–100
[2020-02-14] MEDS: nicardipine 20 MG/200 ML PREMIX 50 MG IV ×3 (00:11→08:19)
--- NOTE | 2020-02-14 02:54 | ECG_ITS ---
Measurements Intervals [place] Rate: 85 P: 66 [place]: 162 QRS: 21 QRSD: 90 T: 64 QT: 386 QTc: 462 SINUS RHYTHM Compared to ECG 01/07/2020 04:33:28 Myocardial infarct finding no longer present Electronically Signed On 02-14-2020 18:05:01 CDT by Chanelle Lambert M.D. [id number]
--- NOTE | 2020-02-14 03:04 | PC.NURSE ---
Late entry: Patient arrived from ER via stretcher at 0100 and was transferred with assistance x4. Patient was placed on telemetry, bipap and vitals were obtained. Patient is alert and oriented but speaks in one to two words at a time. Patient placed on cont. pulse ox. Patient bed in low position, bed alarm on, side rails up x2. Patients brief was changed on arrivel. patient turned to left side. Patient on cardine drip at 5mg/hr. [facility] to [facility]
[2020-02-14 03:07] LABS: Basophils % 0.2 %; Hematocrit 32.5 % (37.0-47.0); Hemoglobin 9.4 g/dL (11.5-15.3); Lymphocytes # 0.4 10^3/uL (0.8-4.8); Lymphocytes % 5.7 %; Mean Corpuscular HGB Conc 28.9 g/dL (30.0-36.0); Mean Corpuscular Hemoglobin 28.5 pg (28.0-34.0); Mean Corpuscular Volume 98.5 fL (81-99); Mean Platelet Volume 10.8 fL (7.4-10.4); Monocytes # 0.1 10^3/uL (0.2-0.9); Monocytes % 0.8 %; Neutrophils # 5.9 10^3/uL (1.8-7.7); Neutrophils % 92.8 %; Nucleated Red Blood Cells % 0 %; Platelet Count 129 10^3/cmm (130-400); Red Cell Distribution Width 14.4 % (12.1-15.1); White Blood Count 6.3 10^3/uL (4.0-10.0)
[2020-02-14 03:25] LABS: Alanine Aminotransferase 25 U/L (0-33); Albumin Level 3.7 g/dL (3.5-5.2); Alkaline Phosphatase 124 IU/L (35-105); Anion Gap 15.4 (5-19); Aspartate Amino Transferase 20 U/L (0-32); Blood Urea Nitrogen 21 mg/dL (8-23); Calcium 9.6 mg/dL (8.5-10.5); Carbon Dioxide 31 mmol/L (22-29); Chloride 101 mmol/L (98-107); Globulin 2.9 g/dL (1.3-4.6); Glucose 161 mg/dL (65-115); Osmolality Calculated 296 mOsm/kg (285-295); Potassium 4.4 mmol/L (3.5-5.1); Sodium 143 mmol/L (136-145); Total Bilirubin 0.2 mg/dL (0.15-1.2); Total Protein 6.6 g/dL (6.6-8.7)
[2020-02-14 03:27] LABS: Troponin 5 6HR 53.44 ng/mL (0-10); Troponin 5 6HR Delta 6.44 ng/L (0-12)
--- NOTE | 2020-02-14 06:00 | PC.NURSE ---
End of shift: Patient rested well on bipap. Patient has tolerated the cardene drip well. Patient heels are floated. Patient buttock on admission had blanchable redness. She had meplix to her buttock. No open areas noted just redness. It appears to be there for protection.
[2020-02-14] MEDS: pantoprazole DR 40 mg Tablet PO ×2 (08:27→18:24)
[2020-02-14] MEDS: bumetanide 1 mg Tablet 2 MG PO (08:27)
[2020-02-14] MEDS: isosorbide mononitrate ER 60 mg Tablet 120 MG PO (08:27)
[2020-02-14] MEDS: hyDRALAzine 10 mg Tablet PO (08:27)
[2020-02-14] MEDS: amlodipine 10 mg Tablet PO (08:28)
[2020-02-14] MEDS: clopidogrel 75 mg Tablet PO (08:28)
--- NOTE | 2020-02-14 09:50 | PC.CHAP ---
Pastoral Care Encounter/Spiritual Assessment Type of Contact [] Declined advertising specialist visit [] Patient/Family/Request visit [] Outpatient visit [] Follow-up visit [] Physician referral [] Code/Alert [x] Routine visit [] Staff referral [] Actively dying [] Patient sleeping [] Family support [] [] Out of room [] Palliative care [] [x] Receiving care in room [] Pre-surgical visit [] Trauma [] Long length of stay [] ICU visit [] Other: Relational/Emotional Strength [] Patient feels connected with others/family/visitors/staff [] Distress [] Loneliness/isolation [] Abandonment Spirituality of Patient [] Person of Yamini [] Attends Restoration of their Yamini [] Believes in Prayer [] Reads Bible or Confucianist materials [] There are Spiritual issues to be addressed Timber Hand Interventions [x] Prayer [] Active listening [] Non-anxious presence [] Spiritual/emotional support [] Crisis/trauma care [] Spiritual counseling [] Bereavement support [] Provided bereavement packet [] Provided Bible/devotional materials [] Provided toy/stuffed animal, coloring book to patient or family member [] Provided Communion [] Anointing/[place] [] Salvation [x] Completed spiritual assessment [] Other: Impact on Illness or Injury [] Angry [] Fearful [] Anxious [] Often cries [] Exhaustion [] Unable to work [] Unable to attend jain [] Unable to walk/stand [] Unable to read [] Unable to drive [] Unable to eat/drink [] Unable to sleep [] Unable to be with family [] Patient intubated [] Other: Summary Time spent with patient
--- NOTE | 2020-02-14 11:04 | PM.PN ---
Subjective Subjective: Interval history: Admitted overnight. H&P and labs noted. On examination patient is sitting comfortably in bed on 2 L nasal cannula saturating well. She still on nicardipine drip with blood pressure of 130/80 mmHg. States her breathing is better. Denies of vomiting, chest pain, palpitation, cough fever. Vitals/I&O/Wt Last Vital Signs Temp 97.9 F 02/14/20 04:45 Pulse 74 02/14/20 10:30 Resp 13 02/14/20 10:30 BP 145/70 02/14/20 10:30 Pulse Ox 100 02/14/20 10:00 02/13/20 02/14/20 02/14/20 22:59 06:59 14:59 Intake Total 200 / 200 425 / 425 Output Total 450 / 450 Balance -250 / -250 425 / 425 Weight last 48 hrs Weight 113.398 kg Physical Exam Narrative: EXAM NARRATIVE: General: No acute distress, AO x3, oxygen supplementation through nasal cannula HEENT: PERRLA, pupils bilaterally equal and reactive Chest: Normal vesicular breath sounds bilaterally, bilateral lower zone crackles, equal good air entry bilaterally CVS: S1-S2 regular, no murmurs, no tachycardia, no gallops, no rubs Abdomen: Soft, nontender, no organomegaly, bowel sounds present Neuro:, Bilateral lower zone spastic paralysis, no facial deformity, AO x3 Suprapubic catheter present. Data : 02/14/20 03:00 02/14/20 03:00 Micro: Microbiology 02/13/20 21:10 Blood Culture - Preliminary Blood SPECIMEN COLLECTED 02/13/20 21:15 Blood Culture - Preliminary Blood SPECIMEN COLLECTED A&P Assessment and plan (1) Hypertensive emergency: Status: Acute (2) Acute exacerbation of congestive heart failure: Status: Acute (3) Depression: Status: Acute (4) Diabetes: Status: Acute (5) Multiple sclerosis: Status: Acute (6) Chronic suprapubic catheter: Status: Acute Additional A&P Information Hypertensive emergency causing CHF exacerbation: Patient has continued on nicardipine drip. Continue home medications of hypertension of amlodipine 10 mg, Imdur 120 mg daily. Increase hydralazine to 25 mg 3 times daily. Wean off nicardipine drip keeping blood pressure less than 160 mmHg. Stop Bumex. Start patient on IV Lasix 40 mg twice daily. Strict input output charting. Daily weights. Fluid restriction up to 1800 cc daily. Last echo from 2018 shows an EF of 50% with diastolic dysfunction. We will repeat echocardiogram. Modified barium swallow from 2017 shows thin liquids penetration. Will repeat modified barium swallow. Continue current diet for now. CT chest without contrast to rule out infiltrate. We will hold off on antibiotics for now given no fever and leukocytosis. COPD without acute exacerbation Oxygen supplementation keeping saturation over 90%. DuoNebs every 6 hours, BiPAP overnight. Chronic kidney disease without acute exacerbation Baseline creatinine around 1.8. 1.7 today. No metabolic acidosis or dyslipidemia. Monitor BMP daily. Recurrent UTIs Urinalysis has persistent pyuria I would avoid adding any antibiotics at this point No need of urine culture We will restart home medication of Celexa, continue Protonix and methenamine hippurate. DVT prophylaxis Heparin 5000 units every 12 hourly. 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
[2020-02-14 11:59] LABS: Thyroid Stimulating Hormone 2.65 uIU/mL (0.27-4.20)
[2020-02-14 14:33] LABS: Iron 34 ug/dL (37-145); Percent Saturation 12.8 % (20-50); Total Iron Binding Capacity 264 mcg/dl; Unsaturated Iron Binding 230 ug/dL (112-347)
--- NOTE | 2020-02-14 15:15 | CTR_ITS ---
PROCEDURE INFORMATION: Exam: CT Chest Without Contrast Exam date and time: 02/14/2020 4:35 PM Age: 74 years old Clinical indication: Shortness of breath; Prior surgery; Surgery date: 6+ months; Surgery type: Stent, gb; Patient HX: Chf exacerbation and copd TECHNIQUE: Imaging protocol: Computed tomography of the chest without contrast. Radiation optimization: All CT scans at this facility use at least one of these dose optimization techniques: automated exposure control; mA and/or kV adjustment per patient size (includes targeted exams where dose is matched to clinical indication); or iterative reconstruction. COMPARISON: CR XR chest 1V portable [id number] 02/13/2020 9:22 PM RADIATION DOSE METRICS: Total DLP: 901.12 mGy-cm FINDINGS: Thyroid: 1.9 cm low-density lesion in the right thyroid lobe. Lungs: Passive atelectasis in the lower lobes. Mild patchy ground-glass opacities in the right upper lobe.. Pleural space: Medium left and small right pleural effusions. Heart: Coronary artery calcifications. The heart size is upper normal. Aorta: Unremarkable. No aortic aneurysm. Lymph nodes: Middle mediastinal lymph nodes measuring up to 1.4 cm short axis. Bones/joints: Unremarkable. No acute fracture. Soft tissues: Body wall edema. CT/CT chest wo con [id number] IMPRESSION: 1. Patchy ground-glass opacities in the right upper lobe could represent asymmetric pulmonary edema versus multifocal pneumonia. 2. Bilateral pleural effusions, left greater than right with passive atelectasis. 3. 1.9 cm thyroid nodule.Recommend follow-up thyroid ultrasound. COMMENTS: Consistent with the [employer]'s Incidental Findings Committee white paper (J Am Dione Radiol 2015): In patients aged 35 years and older with an incidental thyroid nodule equal to or greater than 1.[address], MRI or extrathyroidal US, further evaluation with dedicated thyroid US is recommended for patients with normal life expectancy and without comorbidities. For smaller nodules without suspicious features, no further evaluation or follow up is recommended. Radiation Dose CTDIVOL = (mGy): DLP = 901.12 (mGy-cm)
[2020-02-14] MEDS: hyDRALAzine 25 mg Tablet PO ×2 (15:40→20:56)
[2020-02-14] MEDS: FUROsemide 10 mg/mL SDV 4mL 40 MG IVP (18:23)
[2020-02-14] MEDS: heparin 5,000 unit/mL INJ 1 mL 5000 UNIT SUBCUT (18:24)
--- NOTE | 2020-02-14 20:02 | PC.NURSE ---
Received bedside report from NATANAEL Goodson. Patient resting in bed with eye closed. Patient easily aroused. Performed assessment as documented. Patient requesting Jello which was provided. Patient has chronic suprapubic arnold in place with clear, pale yellow urine observed.
[2020-02-15] VITALS (10 sets, daily range): BP systolic 151–185; BP diastolic 72–87; PULSE 70–88; RESP 17–28; TEMP 36.5–36.8; O2SAT 92–96
[2020-02-15 03:44] LABS: Basophils % 0.6 %; Eosinophils # 0.1 10^3/uL (0.0-0.8); Eosinophils % 1.1 %; Hematocrit 28.5 % (37.0-47.0); Hemoglobin 8.5 g/dL (11.5-15.3); Lymphocytes % 18.6 %; Mean Corpuscular HGB Conc 29.8 g/dL (30.0-36.0); Mean Corpuscular Hemoglobin 29.4 pg (28.0-34.0); Mean Corpuscular Volume 98.6 fL (81-99); Mean Platelet Volume 10.3 fL (7.4-10.4); Monocytes # 0.5 10^3/uL (0.2-0.9); Monocytes % 9.7 %; Neutrophils # 3.7 10^3/uL (1.8-7.7); Neutrophils % 69.8 %; Nucleated Red Blood Cells % 0 %; Platelet Count 125 10^3/cmm (130-400); Red Blood Count 2.89 10^6/uL (4.1-5.3); Red Cell Distribution Width 14.6 % (12.1-15.1); White Blood Count 5.3 10^3/uL (4.0-10.0)
[2020-02-15 04:10] LABS: Alanine Aminotransferase 21 U/L (0-33); Albumin Level 3.6 g/dL (3.5-5.2); Alkaline Phosphatase 100 IU/L (35-105); Anion Gap 14.4 (5-19); Aspartate Amino Transferase 16 U/L (0-32); Blood Urea Nitrogen 32 mg/dL (8-23); Calcium 8.6 mg/dL (8.5-10.5); Carbon Dioxide 31 mmol/L (22-29); Chloride 100 mmol/L (98-107); Globulin 2.3 g/dL (1.3-4.6); Glucose 96 mg/dL (65-115); Osmolality Calculated 291 mOsm/kg (285-295); Potassium 3.4 mmol/L (3.5-5.1); Sodium 142 mmol/L (136-145); Total Bilirubin 0.2 mg/dL (0.15-1.2); Total Protein 5.9 g/dL (6.6-8.7)
[2020-02-15] MEDS: FUROsemide 10 mg/mL SDV 4mL 40 MG IVP (04:42)
[2020-02-15] MEDS: heparin 5,000 unit/mL INJ 1 mL 5000 UNIT SUBCUT ×2 (04:42→17:42)
--- NOTE | 2020-02-15 05:23 | PC.NURSE ---
Patient repositioned for comfort, arnold emptied, and ice passed at this time. Patient given a drink of water. Patient denies other needs at this time. No distress observed.
--- NOTE | 2020-02-15 07:00 | USCV_ITS ---
Bety Vences Age: 74 Gender: F : 1945 Exam Date: 02/15/2020 08:51 Ordering Phys: Andrzej Chi MD Technologist: Annika Hernandez Exam Location: [facility] [place] Indication: CHF BP: 154 / 80 HR: 73 Rhythm: Technical Quality: Fair MEASUREMENTS (Male / Female) Normal Values 2D ECHO LV Diastolic Diameter PLAX 3.9 cm 4.2 - 5.9 / 3.9 - 5.3 cm LV Systolic Diameter PLAX 2.5 cm LV Chamber Size 4.1 cm IVS Diastolic Thickness 1.7 cm 0.6 - 1.0 / 0.6 - 0.9 cm IVS Systolic Thickness 2.0 cm LVPW Diastolic Thickness 1.3 cm 0.6 - 1.0 / 0.6 - 0.9 cm LVPW Systolic Thickness 1.8 cm RV Chamber Size 2.7 cm LVOT Diameter 1.9 cm LV Ejection Fraction 2D Teich 64.1 % LV Ejection Fraction MOD 2C 53.7 % LV Ejection Fraction 2C AL 55.3 % LA Diameter 4.6 cm LA Width 2.8 cm LA Height 5.9 cm RA Width 2.5 cm RA Height 4.4 cm Aorta at Sinotubular Diameter 2.6 cm M-MODE LV Diastolic Diameter MM 5.0 cm 4.2 - 5.9 / 3.9 - 5.3 cm LV Systolic Diameter MM 3.5 cm LV Ejection Fraction MM Teich 57.5 % IVS Diastolic Thickness MM 1.4 cm 0.6 - 1.0 / 0.6 - 0.9 cm IVS Systolic Thickness MM 1.4 cm LVPW Diastolic Thickness MM 1.2 cm 0.6 - 1.0 / 0.6 - 0.9 cm LVPW Systolic Thickness MM 1.7 cm Aortic Annulus Diameter 3.0 cm LA Ao Ratio MM 1.6 MV E Point Septal Separation 0.5 cm DOPPLER AV Peak Velocity 181.0 cm/s LVOT Peak Velocity 117.0 cm/s AV Area Cont Eq vti 2.1 cm squared AV Area Cont Eq pk 1.9 cm squared MV Area PHT 7.6 cm squared Mitral E to A Ratio 1.0 MV E' Velocity 9.0 cm/s Mitral E to MV E' Ratio 13.3 Mitral E to LV E' Lateral Ratio 12.9 Mitral E to LV E' Septal Ratio 13.8 TR Peak Velocity 254.0 cm/s TR Peak Gradient 25.9 mmHg TV Peak E Velocity 94.0 cm/s Right Atrial Pressure 15.0 mmHg Pulmonary Artery Systolic Pressu 40.8 mmHg PV Peak Velocity 93.0 cm/s RV Acceleration Time 0.1 s RV Ejection Time 0.3 s RV AcT/ET 0.3 FINDINGS Left Ventricle Normal left ventricular cavity size. Normal left ventricular systolic function. No regional wall motion abnormalities. Left ventricular ejection fraction is estimated at 57 %. Grade I/IV diastolic dysfunction (abnormal relaxation filling pattern), normal to mildly elevated filling pressures. Right Ventricle The right ventricle is normal in size and function. RVSP could not be calculated due to incomplete tricuspid regurgitation velocity profile. Right Atrium The right atrium is normal in size. Left Atrium The left atrium is normal in size. Mitral Valve Moderately thickened mitral valve. No mitral valve stenosis. Mild mitral valve regurgitation. Aortic Valve Moderate aortic valve calcification. Mild aortic valve stenosis, mean gradient 6 mmHg, NICK 2.1 cm squared. Tricuspid Valve Trace tricuspid valve regurgitation. Pulmonic Valve Structurally normal pulmonic valve without significant stenosis. There is no pulmonic regurgitation. Pericardium Normal pericardium without effusion. Aorta Normal ascending aorta dimension. CONCLUSIONS 1-Normal left ventricular cavity size. Normal left ventricular systolic function. No regional wall motion abnormalities. Left ventricular ejection fraction is estimated at 57 %. Grade I/IV diastolic dysfunction (abnormal relaxation filling pattern), normal to mildly elevated filling pressures. 2-The right ventricle is normal in size and function. RVSP could not be calculated due to incomplete tricuspid regurgitation velocity profile. 3-Moderate aortic valve calcification. Mild aortic valve stenosis, mean gradient 6 mmHg, NICK 2.1 cm squared. 4-Moderately thickened mitral valve. No mitral valve stenosis. Mild mitral valve regurgitation. 5-There is no pericardial effusion. 6-Right atrial pressure is around 5 mm of mercury. 7- When compared to the prior echocardiogram dated 11/04/2016 there is no significant change Nima Patel MD (Electronically Signed) Final Date: 15 February 2020 17:55 S
[2020-02-15] MEDS: amlodipine 10 mg Tablet PO (08:38)
[2020-02-15] MEDS: citalopram 20 mg Tablet 40 MG PO (08:38)
[2020-02-15] MEDS: hyDRALAzine 25 mg Tablet PO (08:38)
[2020-02-15] MEDS: pantoprazole DR 40 mg Tablet PO ×2 (08:41→17:42)
[2020-02-15] MEDS: isosorbide mononitrate ER 60 mg Tablet 120 MG PO (08:41)
[2020-02-15] MEDS: clopidogrel 75 mg Tablet PO (08:41)
--- NOTE | 2020-02-15 13:07 | P.PN_ITS ---
Subjective Subjective: Interval history: Admitted overnight. H&P and labs noted. On examination patient is sitting comfortably in bed on 2 L nasal cannula saturating well. She still on nicardipine drip with blood pressure of 130/80 mmHg. States her breathing is better. Denies of vomiting, chest pain, palpitation, cough fever. Vitals/I&O/Wt Last Vital Signs Temp 98 F 02/15/20 00:00 Pulse 75 02/15/20 11:47 Resp 19 H 02/15/20 11:47 BP 176/87 02/15/20 11:47 Pulse Ox 94 02/15/20 11:47 02/14/20 02/15/20 02/15/20 22:59 06:59 14:59 Intake Total 480 / 1105 360 / 360 Output Total 800 / 800 650 / 1450 Balance -320 / 305 -650 / -345 360 / 360 Weight last 48 hrs Weight 96.933 kg Weight 113.398 kg Physical Exam Narrative: EXAM NARRATIVE: General: No acute distress, AO x3, oxygen supplementation through nasal cannula HEENT: PERRLA, pupils bilaterally equal and reactive Chest: Normal vesicular breath sounds bilaterally, bilateral lower zone crackles, equal good air entry bilaterally CVS: S1-S2 regular, no murmurs, no tachycardia, no gallops, no rubs Abdomen: Soft, nontender, no organomegaly, bowel sounds present Neuro:, Bilateral lower zone spastic paralysis, no facial deformity, AO x3 Suprapubic catheter present. Data : 02/15/20 03:34 02/15/20 03:34 Micro: Microbiology 02/13/20 22:30 Urine Culture - Preliminary Urine,Clean Catch Gram Negative Rods 02/13/20 21:15 Blood Culture - Preliminary Blood NEGATIVE TO DATE 02/13/20 21:10 Blood Culture - Preliminary Blood NEGATIVE TO DATE A&P Assessment and plan (1) Hypertensive emergency: Status: Acute (2) Acute exacerbation of congestive heart failure: Status: Acute (3) Depression: Status: Acute (4) Diabetes: Status: Acute (5) Multiple sclerosis: Status: Acute (6) Chronic suprapubic catheter: Status: Acute Additional A&P Information Hypertensive emergency causing CHF exacerbation: Patient has continued on nicardipine drip. Continue home medications of hypertension of amlodipine 10 mg, Imdur 120 mg daily. Increase hydralazine to 25 mg 3 times daily. Wean off nicardipine drip keeping blood pressure less than 160 mmHg. Stop Bumex. Start patient on IV Lasix 40 mg twice daily. Strict input output charting. Daily weights. Fluid restriction up to 1800 cc daily. Last echo from 2018 shows an EF of 50% with diastolic dysfunction. We will repeat echocardiogram. Modified barium swallow from 2017 shows thin liquids penetration. Will repeat modified barium swallow. Continue current diet for now. CT chest without contrast to rule out infiltrate. We will hold off on antibiotics for now given no fever and leukocytosis. COPD without acute exacerbation Oxygen supplementation keeping saturation over 90%. DuoNebs every 6 hours, BiPAP overnight. Chronic kidney disease without acute exacerbation Baseline creatinine around 1.8. 1.7 today. No metabolic acidosis or dyslipidemia. Monitor BMP daily. Recurrent UTIs Urinalysis has persistent pyuria I would avoid adding any antibiotics at this point No need of urine culture We will restart home medication of Celexa, continue Protonix and methenamine hippurate. DVT prophylaxis Heparin 5000 units every 12 hourly. Consistent carb diet DNR/DNI Attestations Medical Necessity Statement*: Congestive heart failure, COPD exacerbation Time Spent in Patient Care: Greater than 35 minutes Coding Level of Care Code Acute [employer] for [facility] Fwd Diagnoses Hypertensive emergency I16.1 Acute exacerbation of congestive heart failure I50.9 Depression F32.9 Diabetes E11.9 Multiple sclerosis G35 Chronic suprapubic catheter Z93.59
--- NOTE | 2020-02-15 14:23 | P.PN_ITS ---
Subjective Subjective: Interval history: No acute events overnight. On examination patient states she is feeling a lot better today. She denies of having any chest pain, nausea, vomiting, headache. She is saturating 94% on 2 L nasal cannula. Patient has been off nicardipine drip for last 24 hours. Her blood pressures have been well maintained. Her blood pressures little elevated right now as she is seeing her after 4 months. Labs and vitals noted. Vitals/I&O/Wt Last Vital Signs Temp 98 F 02/15/20 00:00 Pulse 75 02/15/20 11:47 Resp 19 H 02/15/20 11:47 BP 176/87 02/15/20 11:47 Pulse Ox 94 02/15/20 11:47 02/14/20 02/15/20 02/15/20 22:59 06:59 14:59 Intake Total 480 / 1105 600 / 600 Output Total 800 / 800 650 / 1450 Balance -320 / 305 -650 / -345 600 / 600 Weight last 48 hrs Weight 96.933 kg Weight 113.398 kg Physical Exam Narrative: EXAM NARRATIVE: General: No acute distress, AO x3, oxygen supplementation through nasal cannula HEENT: PERRLA, pupils bilaterally equal and reactive Chest: Normal vesicular breath sounds bilaterally, bilateral lower zone crackles, equal good air entry bilaterally CVS: S1-S2 regular, no murmurs, no tachycardia, no gallops, no rubs Abdomen: Soft, nontender, no organomegaly, bowel sounds present Neuro:, Bilateral lower zone spastic paralysis, no facial deformity, AO x3 Suprapubic catheter present. Data : 02/15/20 03:34 02/15/20 03:34 Micro: Microbiology 02/13/20 22:30 Urine Culture - Preliminary Urine,Clean Catch Gram Negative Rods 02/13/20 21:15 Blood Culture - Preliminary Blood NEGATIVE TO DATE 02/13/20 21:10 Blood Culture - Preliminary Blood NEGATIVE TO DATE A&P Assessment and plan (1) Hypertensive emergency: Status: Acute (2) Acute exacerbation of congestive heart failure: Status: Acute (3) Diabetes: Has history of diabetes but does not have any antidiabetic as an outpatient. Check HbA1c. Status: Acute (4) Multiple sclerosis: Status: Acute (5) Chronic suprapubic catheter: Status: Acute (6) Depression: Status: Acute Additional A&P Information Hypertensive emergency causing CHF exacerbation: Off nicardipine drip for last 24 hours. For now continue with home dose of amlodipine 10 mg, Imdur 120 mg daily. Increase hydralazine to 37.5 mg every 8 hourly. We will continue to monitor blood pressure. Urine output has been low but appropriate and patient is improving from respiratory standpoint. We will decrease the Lasix and change to oral 60 mg twice daily. Patient already received IV 40 mg in the morning. Fluid restriction to 1800 cc. Daily weights, strict input output charting. We will request for bladder scan to look for a possible suprapubic catheter obstruction. Echocardiogram done but awaited. CT chest done yesterday consistent with congestive heart failure and a possible consolidation in the right upper lobe. Consolidation most likely because of chronic aspiration. Modified barium swallow done in 2018 was consistent with aspiration of thin liquids. As per patient she was on a nectar thickened diet which was recently changed to a regular diet at the longterm after swallow evaluation. Repeat modified barium has been requested but cannot be done over the weekend. For now we will continue on same diet and patient will have a barium swallow as an outpatient. COPD without acute exacerbation Oxygen supplementation keeping saturation over 90%. DuoNebs every 6 hours, BiPAP overnight. Chronic kidney disease without acute exacerbation Baseline creatinine around 1.8. Has gone as high as 2.2 in the past in S eptember 2019. 2.0 today. No metabolic acidosis or electrolyte abnormality. Monitor BMP daily. Anemia: Chronic. Baseline hemoglobin around 9.5. 8.5 today. Iron studies consistent with iron deficiency anemia and anemia of chronic disease. Start patient on oral iron supplementation. Recurrent UTIs Urinalysis has persistent pyuria I would avoid adding any antibiotics at this point No need of urine culture We will restart home medication of Celexa, continue Protonix and methenamine hippurate. DVT prophylaxis Heparin 5000 units every 12 hourly. Consistent carb diet DNR/DNI Care discussed in detail with both patient and her over bedside. If patient continues to improve can plan to discharge tomorrow. Attestations Medical Necessity Statement*: Uncontrolled hypertension, diastolic heart omkar lure Time Spent in Patient Care: Greater than 35 minutes (>than 50% of time spent in counselling and/or direct pt care on unit) . Coding Level of Care Code Acute [employer]st for [facility] Diagnoses Hypertensive emergency I16.1 Acute exacerbation of congestive heart failure I50.9 Diabetes E11.9 Multiple sclerosis G35 Chronic suprapubic catheter Z93.59 Depression F32.9
[2020-02-15] MEDS: hyDRALAzine 25 mg Tablet 37.5 MG PO ×2 (16:07→20:35)
[2020-02-15] MEDS: FUROsemide 40 mg Tablet 60 MG PO (16:08)
[2020-02-15] MEDS: ferrous sulfate EC 325 mg Tablet PO (17:42)
[2020-02-15] MEDS: bisacodyl 5 mg Tablet 10 MG PO (17:43)
[2020-02-15] MEDS: ipratropium-albuterol 3 mL Neb INHALATION (20:00)
[2020-02-16] VITALS (14 sets, daily range): BP systolic 142–196; BP diastolic 65–97; PULSE 57–88; RESP 16–25; TEMP 36.3–36.6; O2SAT 93–96
[2020-02-16] MEDS: ipratropium-albuterol 3 mL Neb INHALATION ×3 (02:00→20:47)
[2020-02-16 05:43] LABS: Basophils % 0.3 %; Eosinophils % 0.6 %; Hematocrit 31.4 % (37.0-47.0); Hemoglobin 9.2 g/dL (11.5-15.3); Lymphocytes # 0.8 10^3/uL (0.8-4.8); Lymphocytes % 12.1 %; Mean Corpuscular HGB Conc 29.3 g/dL (30.0-36.0); Mean Corpuscular Hemoglobin 28.2 pg (28.0-34.0); Mean Corpuscular Volume 96.3 fL (81-99); Mean Platelet Volume 11.4 fL (7.4-10.4); Monocytes # 0.5 10^3/uL (0.2-0.9); Monocytes % 6.6 %; Neutrophils # 5.5 10^3/uL (1.8-7.7); Neutrophils % 79.5 %; Nucleated Red Blood Cells % 0 %; Platelet Count 151 10^3/cmm (130-400); Red Blood Count 3.26 10^6/uL (4.1-5.3); Red Cell Distribution Width 14.6 % (12.1-15.1); White Blood Count 6.9 10^3/uL (4.0-10.0)
[2020-02-16] MEDS: heparin 5,000 unit/mL INJ 1 mL 5000 UNIT SUBCUT ×2 (05:52→17:52)
[2020-02-16 05:58] LABS: Alanine Aminotransferase 23 U/L (0-33); Albumin Level 3.8 g/dL (3.5-5.2); Alkaline Phosphatase 110 IU/L (35-105); Anion Gap 15.1 (5-19); Aspartate Amino Transferase 18 U/L (0-32); Blood Urea Nitrogen 32 mg/dL (8-23); Calcium 8.8 mg/dL (8.5-10.5); Carbon Dioxide 31 mmol/L (22-29); Chloride 98 mmol/L (98-107); Globulin 2.7 g/dL (1.3-4.6); Glucose 105 mg/dL (65-115); Osmolality Calculated 290 mOsm/kg (285-295); Potassium 3.1 mmol/L (3.5-5.1); Sodium 141 mmol/L (136-145); Total Bilirubin 0.3 mg/dL (0.15-1.2); Total Protein 6.5 g/dL (6.6-8.7)
[2020-02-16 06:04] LABS: Estmated Average Glucose 88; Hemoglobin A1C 4.7 % (4.0-6.0)
--- NOTE | 2020-02-16 06:35 | PC.NURSE ---
Shift Summary Pt was feeling very sob when this nurse came on shift. Pt was on 2-2.5L NC, saturating well. Pt was repositioned and sat up and pt continued to feel sob. RT called and pt was placed on bipap. pt had no more complaints while wearing mask. pt had good urinary output and slept well after sob dissipated.
--- NOTE | 2020-02-16 09:49 | PC.SOCIAL ---
Pg 2 IMM Explained to pt Pg 2 IMM. No questions voiced. Provided pt a copy & left on pt's bedside table. Signed, dated, & timed a copy & placed in pt's chart.
[2020-02-16] MEDS: clopidogrel 75 mg Tablet PO (09:50)
[2020-02-16] MEDS: amlodipine 10 mg Tablet PO (09:50)
[2020-02-16] MEDS: citalopram 20 mg Tablet 40 MG PO (09:50)
[2020-02-16] MEDS: pantoprazole DR 40 mg Tablet PO ×2 (09:50→17:51)
[2020-02-16] MEDS: FUROsemide 40 mg Tablet 60 MG PO ×2 (09:50→15:33)
[2020-02-16] MEDS: ferrous sulfate EC 325 mg Tablet PO ×2 (09:50→17:51)
[2020-02-16] MEDS: hyDRALAzine 25 mg Tablet 37.5 MG PO (09:52)
[2020-02-16] MEDS: isosorbide mononitrate ER 60 mg Tablet 120 MG PO (09:52)
--- NOTE | 2020-02-16 13:10 | PM.PN ---
Subjective Subjective: Interval history: No acute events overnight. Labs and vitals noted. Blood pressure better but still on the higher side. Patient states she is feeling a lot better. Denies of any chest pain, nausea, vomiting, headache. Vitals/I&O/Wt Last Vital Signs Temp 97.8 F 02/16/20 12:51 Pulse 87 02/16/20 12:51 Resp 25 H 02/16/20 12:51 BP 196/88 02/16/20 12:51 Pulse Ox 93 02/16/20 12:51 02/15/20 02/16/20 02/16/20 22:59 06:59 14:59 Intake Total 360 / 960 540 / 540 Output Total 1000 / 1000 900 / 1900 Balance -640 / -40 -900 / -940 540 / 540 Weight last 48 hrs Weight 97.522 kg Weight 96.933 kg Physical Exam Narrative: EXAM NARRATIVE: General: No acute distress, AO x3, oxygen supplementation through nasal cannula HEENT: PERRLA, pupils bilaterally equal and reactive Chest: Normal vesicular breath sounds bilaterally, bilateral lower zone fine occasional crackles, equal good air entry bilaterally CVS: S1-S2 regular, no murmurs, no tachycardia, no gallops, no rubs Abdomen: Soft, nontender, no organomegaly, bowel sounds present Neuro:, Bilateral lower zone spastic paralysis, no facial deformity, AO x3 Suprapubic catheter present. Data : 02/16/20 04:30 02/16/20 04:30 Micro: Microbiology 02/13/20 22:30 Urine Culture - Preliminary Urine,Clean Catch Gram Negative Rods A&P Assessment and plan (1) Uncontrolled hypertension: Status: Acute (2) Acute exacerbation of congestive heart failure: Status: Acute (3) Diabetes: Has history of diabetes but does not have any antidiabetic as an outpatient. Check HbA1c. Status: Acute (4) Multiple sclerosis: Status: Acute (5) Chronic suprapubic catheter: Status: Acute (6) Depression: Status: Acute (7) Hypertensive emergency: Status: Acute Additional A&P Information Uncontrolled hypertension: Hypertensive emergency resolved. Off nicardipine drip. For now continue with home dose of amlodipine 10 mg, Imdur 120 mg daily. Increase hydralazine to 50 mg every 8 hour and add Coreg 6.25 mg twice daily. Blood pressure elevated most likely secondary to autonomic dysfunction because of underlying worsening multiple sclerosis. We will continue to monitor blood pressure. Patient overall a liter negative. Continue Lasix 60 mg twice daily. Fluid restriction to 1800 cc. Daily weights, strict input output charting. We will request for bladder scan to look for a possible suprapubic catheter obstruction. Echocardiogram done shows an EF 57% and grade 1 diastolic dysfunction with mild aortic stenosis. CT chest done yesterday consistent with congestive heart failure and a possible consolidation in the right upper lobe. Consolidation most likely because of chronic aspiration. Modified barium swallow done in 2017 was consistent with aspiration of thin liquids. As per patient she was on a nectar thickened diet which was recently changed to a regular diet at the skilled nursing after swallow evaluation. Repeat modified barium has been requested but cannot be done over the weekend. For now we will continue on same diet and patient will have a barium swallow as an outpatient. COPD without acute exacerbation Oxygen supplementation keeping saturation over 90%. DuoNebs every 6 hours, BiPAP overnight. Chronic kidney disease without acute exacerbation Baseline creatinine around 1.8. Has gone as high as 2.2 in the past in May 2019. Stable and improving. No metabolic acidosis or electrolyte abnormality. Monitor BMP daily. Anemia: Chronic. Baseline hemoglobin around 9.5. Stable Iron studies consistent with iron deficiency anemia and anemia of chronic disease. Continue with oral iron supplementation. Recurrent UTIs Urinalysis has persistent pyuria I would avoid adding any antibiotics at this point No need of urine culture Continue with home medication of Celexa, continue Protonix and methenamine hippurate. DVT prophylaxis Heparin 5000 units every 12 hourly. Consistent carb diet DNR/DNI Attestations Medical Necessity Statement*: Uncontrolled hypertension, diastolic heart failure Time Spent in Patient Care: Greater than 35 minutes (>than 50% of time spent in counselling and/or direct pt care on unit). Coding Level of Care Code Acute Wallet As[employer]er for [facility] Diagnoses Uncontrolled hypertension I10 Acute exacerbation of congestive heart failure I50.9 Diabetes E11.9 Multiple sclerosis G35 Chronic suprapubic catheter Z93.59 Depression F32.9 Hypertensive emergency I16.1
[2020-02-16] MEDS: carvedilol 6.25 mg Tablet PO ×2 (13:22→17:52)
[2020-02-16] MEDS: hyDRALAzine 50 mg Tablet PO ×2 (15:33→19:48)
--- NOTE | 2020-02-16 20:29 | PC.NURSE ---
Patient has no complaints at this time other than being cold. Heat was turned up and patient covered with blanket. Patient's absorbent pad is currently clean and dry. Patient was turned onto her left side with pillows placed with 2 assist.
[2020-02-17] VITALS (10 sets, daily range): BP systolic 152–175; BP diastolic 58–88; PULSE 59–67; RESP 15–25; TEMP 36.3–36.5; O2SAT 92–96
[2020-02-17] MEDS: ipratropium-albuterol 3 mL Neb INHALATION ×3 (02:18→14:47)
--- NOTE | 2020-02-17 04:50 | PC.NURSE ---
Patient's absorbent pad is currently clean and dry. Patient was repositioned on her back with 2 assist. Patient does not have any complaints at this time.
[2020-02-17] MEDS: heparin 5,000 unit/mL INJ 1 mL 5000 UNIT SUBCUT (04:55)
[2020-02-17 05:04] LABS: Basophils % 0.3 %; Eosinophils # 0.1 10^3/uL (0.0-0.8); Eosinophils % 0.9 %; Hematocrit 29.9 % (37.0-47.0); Hemoglobin 8.9 g/dL (11.5-15.3); Lymphocytes # 0.8 10^3/uL (0.8-4.8); Lymphocytes % 13.5 %; Mean Corpuscular HGB Conc 29.8 g/dL (30.0-36.0); Mean Corpuscular Hemoglobin 28.3 pg (28.0-34.0); Mean Corpuscular Volume 95.2 fL (81-99); Mean Platelet Volume 11.1 fL (7.4-10.4); Monocytes # 0.4 10^3/uL (0.2-0.9); Monocytes % 6.1 %; Neutrophils # 4.5 10^3/uL (1.8-7.7); Neutrophils % 78.2 %; Nucleated Red Blood Cells % 0 %; Platelet Count 147 10^3/cmm (130-400); Red Blood Count 3.14 10^6/uL (4.1-5.3); Red Cell Distribution Width 14.4 % (12.1-15.1); White Blood Count 5.8 10^3/uL (4.0-10.0)
[2020-02-17 05:24] LABS: Alanine Aminotransferase 22 U/L (0-33); Albumin Level 3.4 g/dL (3.5-5.2); Alkaline Phosphatase 105 IU/L (35-105); Anion Gap 16.8 (5-19); Aspartate Amino Transferase 16 U/L (0-32); Blood Urea Nitrogen 30 mg/dL (8-23); Calcium 9.6 mg/dL (8.5-10.5); Carbon Dioxide 31 mmol/L (22-29); Chloride 98 mmol/L (98-107); Creatinine Clr Calc Pharmacy 29.4563; Glucose 101 mg/dL (65-115); Osmolality Calculated 293 mOsm/kg (285-295); Sodium 143 mmol/L (136-145); Total Bilirubin 0.3 mg/dL (0.15-1.2); Total Protein 6.4 g/dL (6.6-8.7)
[2020-02-17 05:56] LABS: Potassium 2.8 mmol/L (3.5-5.1)
--- NOTE | 2020-02-17 05:59 | PC.NURSE ---
Reported critical KCl of 2.[address] Chen at this time. Waiting for orders.
--- NOTE | 2020-02-17 06:26 | PC.NURSE ---
Dr. Chi notified of potassium of 2.8.
--- NOTE | 2020-02-17 06:30 | PC.NURSE ---
Patient was turned onto her right side with pillows placed with 2 person assist. Absorbent pad is clean and dry at this time.
--- NOTE | 2020-02-17 07:00 | FL_ITS ---
WS: [id number] MODIFIED BARIUM SWALLOW HISTORY: Oropharyngeal dysphagia FLUOROSCOPY TIME: 2.9 minutes. Modified barium swallow was performed by the speech pathologist. Fluoroscopy was provided with the pa tient in a lateral projection. Multiple food consistencies were provided. Delayed initiation of thin liquids. No aspiration or laryngeal penetration. There was significant del ay in emptying of the mid to distal esophagus. To and fro motion of the barium in the mid to distal e sophagus due to the poor emptying. On the recent chest CT of 02/14/2020 there was fluid in the upper an d mid esophagus. FL/FL barium swallow modifd [id number] IMPRESSION: 1. Poor emptying of the mid to distal esophagus with to and fro motion of the barium. Patient is at increased risk for aspiration. 2. No aspiration or laryngeal penetration. Please see speech therapist report also for recommendations.
[2020-02-17] MEDS: isosorbide mononitrate ER 60 mg Tablet 120 MG PO (08:00)
[2020-02-17] MEDS: hyDRALAzine 50 mg Tablet PO ×2 (08:00→15:09)
[2020-02-17] MEDS: citalopram 20 mg Tablet 40 MG PO (08:00)
[2020-02-17] MEDS: clopidogrel 75 mg Tablet PO (08:00)
[2020-02-17] MEDS: pantoprazole DR 40 mg Tablet PO (08:01)
[2020-02-17] MEDS: amlodipine 10 mg Tablet PO (08:01)
[2020-02-17] MEDS: ferrous sulfate EC 325 mg Tablet PO (08:02)
[2020-02-17] MEDS: carvedilol 6.25 mg Tablet PO (08:02)
[2020-02-17] MEDS: FUROsemide 40 mg Tablet 60 MG PO ×2 (08:02→15:09)
--- NOTE | 2020-02-17 10:27 | PM.PN ---
Subjective Subjective: Interval history: Chart reviewed, MBS today so NPO, BP seems to be better controlled though still hypertensive. Reviewed MBS findings with ST. Patient seen after return from study, resting in bed, no apparent distress, no acute overnight events reported. Noted hypokalemia, will replace IV. Cannot recall when suprapubic catheter was last changed. Just had BM. Medications: Reviewed: Yes Medication Review Details: Active Medications Generic Name Dose Route Start Last Admin Trade Name Freq PRN Reason Stop Dose Admin Acetaminophen 325 - 650 mg 02/14/20 01:26 Tylenol PO Q4H PRN Pain Albuterol/Ipratrop ium 3 ml 02/15/20 15:00 02/17/20 09:00 Duoneb INHALATION 3 ml Q6H.RESPIRATORY S [facility] Administration Amlodipine Besylat e 10 mg 02/14/20 09:00 02/17/20 08:01 Norvasc PO 10 mg DAILY ALEYDA Administration Bisacodyl 10 mg 02/14/20 01:26 Bisac-Evac [place] PRN ALEYDA Bisacodyl 10 mg 02/14/20 01:26 02/15/20 17:43 Dulcolax PO 10 mg DAILY PRN Administration Constipation Carvedilol 6.25 mg 02/16/20 13:10 02/17/20 08:02 Coreg PO 6.25 mg BID ALEYDA Administration Citalopram Hydrobr omide 40 mg 02/15/20 09:00 02/17/20 08:00 Celexa PO 40 mg DAILY ALEYDA Administration Clopidogrel Bisulf ate 75 mg 02/14/20 09:00 02/17/20 08:00 Plavix PO 75 mg DAILY ALEYDA Administration Ferrous Sulfate 325 mg 02/15/20 18:00 02/17/20 08:02 Ferrous Sulfate PO 325 mg BIDWM ALEYDA Administration Furosemide 60 mg 02/15/20 16:00 02/17/20 08:02 Lasix PO 60 mg BID@08,16 ALEYDA Administration Heparin Sodium (Be ef Lung) 5,000 unit 02/14/20 18:00 02/17/20 04:55 Heparin SUBCUT 5,000 unit Q12H ALEYDA Administration Hydralazine HCl 50 mg 02/16/20 15:00 02/17/20 08:00 Apresoline PO 50 mg TID ALEYDA Administration Nicardipine/Sodium Chloride 20 mg in 200 mls @ 0 mls/hr 02/13/20 23:00 02/14/20 13:30 Cardene IV Infused .Q0M ALEYDA Titration Protocol Per Protocol Potassium Chloride 40 meq in 100 mls @ 25 mls/hr 02/17/20 10:30 [place] IV 02/17/20 18:29 Q4H ALEYDA Isosorbide Mononit rate 120 mg 02/14/20 09:00 02/17/20 08:00 Imdur PO 120 mg DAILY ALEYDA Administration Morphine Sulfate 2 mg 02/14/20 01:26 Morphine IVP Q4H PRN SEVERE PAIN Non-Formulary Medi cation 1 gm 02/15/20 18:00 Methenamine Guillermo urate PO BID ALEYDA Ondansetron HCl 4 mg 02/14/20 01:26 Zofran IVP Q6H PRN NAUSEA AND VOMITI NG Pantoprazole Sodiu m 40 mg 02/14/20 09:00 02/17/20 08:01 Protonix PO 40 mg BID ALEYDA Administration Phenazopyridine HC l 200 mg 02/15/20 14:37 Pyridium PO TID PRN unknown Potassium Chloride 20 meq 02/14/20 09:00 02/17/20 08:01 Klor-Con 10 PO 20 meq DAILY ALEYDA Administration Iodinated Contrast Media Allergy (Verified 01/28/20 16:37) Unknown iodine Allergy (Verified 01/28/20 16:37) UNKNOWN prednisone Allergy (Verified 01/28/20 16:37) UNKNOWN Vitals/I&O/Wt Last Vital Signs Temp 97.7 F 02/17/20 07:22 Pulse 60 02/17/20 09:08 Resp 16 02/17/20 09:08 BP 175/78 02/17/20 07:22 Pulse Ox 94 02/17/20 09:08 02/16/20 02/17/20 02/17/20 22:59 06:59 14:59 Intake Total 540 / 1080 200 / 1280 Output Total 850 / 850 550 / 1400 Balance -310 / 230 -350 / -120 Weight last 48 hrs Weight 98.293 kg Weight 97.522 kg Physical Exam Const: COMMON NORMALS: no acute distress and patient oriented x3 GENERAL APPEARANCE: cooperative and comfortable NUTRITIONAL APPEARANCE: obese morbidly obese ORIENTATION/CONSCIOUSNESS: Yes awake HENMT: COMMON NORMALS: normocephalic, atraumatic, hearing grossly normal bilaterally and moist oral mucous membranes HEAD & SCALP: normocephalic and atraumatic Eye: COMMON NORMALS: Equal, round and reactive pupils present, EOMs intact bilaterally and conjunctivae normal CONJUNCTIVA: Yes conjunctivae normal PUPIL: Yes Equal, round and reactive pupils present Neck/C-Spine: COMMON NORMALS: full ROM GENERAL: Yes normal visual inspection and Yes trachea midline Resp: COMMON NORMALS: normal respiratory effort, No retractions, No use of accessory muscles and clear to auscultation bilaterally EFFORT & INSPECTION: Yes able to speak in complete sentences, Yes symmetric chest movement and No tachypneic AUSCULTATION: clear to auscultation bilaterally OTHER: -on 2 L NC Cardio: COMMON NORMALS: regular rate, regular rhythm, S1 normal heart sound present, S2 normal heart sound present and No murmurs present (Cardio) RATE: regular rate RHYTHM: regular rhythm HEART SOUNDS: S1 normal heart sound present and S2 normal heart sound present GI: COMMON NORMALS: Normal to inspection, nondistended, normoactive bowel sounds present, Soft to palpation and non-tender INSPECTION: Yes central obesity PALPATION: Yes Soft to palpation : BLADDER/KIDNEY EXAM: Yes catheter in place Catheter type (Female): suprapubic (chronic) Extremity: NARRATIVE EXTREMITY EXAM: -non-pitting edema of bilateral LEs, foot drop bilaterally -contracted hands bilaterally Neuro: COMMON NORMALS: patient oriented x3 Psych: COMMON NORMALS: mental status grossly normal, Normal thought process present, cooperative and speech normal SPEECH: Yes normal speech MOOD & AFFECT: Yes Flat affect present THOUGHT PROCESS: Normal thought process present Skin: COMMON NORMALS: no rashes or lesions noted, no jaundice, no petechiae and no mottling GENERAL SKIN EXAM: no rashes or lesions noted Urinary Catheter Management^: Suprapubic: Cath Placed During This Visit: no Reason for Continuing Indwelling Catheter: Chronic Indwelling Urinary Catheter on Admission Data : 02/17/20 04:10 02/17/20 04:10 Micro: Microbiology 02/13/20 22:30 Urine Culture - Preliminary Urine,Clean Catch Escherichia coli Staphylococcus species Streptococcus species A&P Assessment and plan (1) Uncontrolled hypertension: -Presented with hypertensive emergency, required nicardipine drip which has been discontinued -Blood pressure better controlled though still hypertensive -On oral antihypertensive regimen consisting of amlodipine 10 mg, Imdur 120 mg daily, hydralazine 50 mg 3 times daily, Coreg 6.25 mg twice daily. Would not increase Coreg as she has had instances of bradycardia though asymptomatic -Suspect element of autonomic dysregulation secondary to underlying multiple sclerosis which will make blood pressure control a continued challenge -Continue to monitor vital signs Status: Acute (2) Recurrent UTI: -Has chronic neurogenic bladder, suprapubic catheter -Has multiple urinalysis samples indicative of infection including one done during this admission -follows up with Dr. Jeronimo -is on methenamine Status: Chronic (3) Multiple sclerosis: -has hx of MS with associated neurogenic bladder, WC-dependent -follows up with Dr. Estrada -fall precautions Status: Chronic (4) Heart failure with preserved ejection fraction: -acute exacerbation of chronic diastolic CHF -Echo: EF=57%, G1DD, no RWMA, mild , trace TR -on Lasix BID -noted to have possible pulmonary edema vs. multifocal pneumonia involving RUL on CT chest as well as bilateral pleural effusions Status: Acute Qualifiers: Heart failure chronicity: acute on chronic Qualified Code(s): I50.33 - Acute on chronic diastolic (congestive) heart failure (5) Diabetes: -A1c-4.7 -Accuchecks, ISS, hypoglycemia precautions Status: Chronic Qualifiers: Diabetes mellitus complication status: without complication Diabetes mellitus rodent exterminator insulin use: without rodent exterminator use Diabetes mellitus type: type 2 Qualified Code(s): E11.9 - Type 2 diabetes mellitus without complications (6) Acute worsening of stage 3 chronic kidney disease: -baseline Cr appears to be 1.6-2 -continue to monitor renal function Status: Acute (7) Aspiration into respiratory tract: -noted evidence of patchy ground glass opacity in RUL concerning for pneumonia likely secondary to aspiration -has known hx of aspiration -MBS today, NPO for this -aspiration precautions Status: Acute Qualifiers: Encounter type: initial encounter Qualified Code(s): T17.908A - Unspecified foreign body in respiratory tract, part unspecified causing other injury, initial encounter Additional A&P Information -Hypokalemia; likely secondary to diuretics; replace as needed -hx of CAD s/p stenting (10/2008) -chronic iron deficiency anemia; baseline Hg 9-10; continue to monitor, iron supplementation -GI ppx with PPI -DVT ppx with heparin -Dispo: [facility] [place]) -Code status: DNR/DNI Attestations Medical Necessity Statement*: Discharge today after modified barium swallow. Time Spent in Patient Care: Greater than 35 minutes (>than 50% of time spent in counselling and/or direct pt care on unit). Coding Level of Care Code Acute Tile Designer for Chg Fwd Exam Comprehensive Diagnoses Uncontrolled hypertension I10 Recurrent UTI N39.0 Multiple sclerosis G35 Heart failure with preserved ejection fraction I50.33 Heart failure chronicity: acute on chronic Diabetes E11.9 Diabetes mellitus complication status: without complication Diabetes mellitus retirement insulin use: without retirement use Diabetes mellitus type: type 2 Acute worsening of stage 3 chronic kidney disease N18.3 Aspiration into respiratory tract T17.908A Encounter type: initial encounter
--- NOTE | 2020-02-17 12:54 | P.DS_ITS ---
Discharge Providers Date of Admission: 02/13/20 23:11 Date of Discharge: February 17, 2020 Attending Provider at Admission: Nima Chen MD Attending Provider at Discharge: Lacey Vinson MD Primary Care Provider: Svetlana Ware MD Diagnoses at Discharge Discharge Diagnosis (1) Uncontrolled hypertension: Status: Acute Problem details: -Presented with hypertensive emergency, required nicardipine drip which has been discontinued -Blood pressure better controlled though still hypertensive -On oral antihypertensive regimen consisting of amlodipine 10 mg, Imdur 120 mg daily, hydralazine 50 mg 3 times daily, Coreg 6.25 mg twice daily. Would not increase Coreg as she has had instances of bradycardia though asymptomatic -Suspect element of autonomic dysregulation secondary to underlying multiple sclerosis which will make blood pressure control a continued challenge -Continue to monitor vital signs (2) Recurrent UTI: Status: Chronic Problem details: -Has chronic neurogenic bladder, suprapubic catheter -Has multiple urinalysis samples indicative of infection including one done during this admission -follows up with Dr. Jeronimo -is on methenamine (3) Multiple sclerosis: Status: Chronic Problem details: -has hx of MS with associated neurogenic bladder, WC-dependent -follows up with Dr. Estrada -fall precautions (4) Heart failure with preserved ejection fraction: Status: Resolved Problem details: -acute exacerbation of chronic diastolic CHF -Echo: EF=57%, G1DD, no RWMA, mild , trace TR -on Lasix BID -noted to have possible pulmonary edema vs. multifocal pneumonia involving RUL on CT chest as well as bilateral pleural effusions Qualifiers: Heart failure chronicity: acute on chronic Qualified Code(s): I50.33 - Acute on chronic diastolic (congestive) heart failure (5) Diabetes: Status: Chronic Problem details: -A1c-4.7 -Accuchecks, ISS, hypoglycemia precautions Qualifiers: Diabetes mellitus complication status: without complication Diabetes mellitus rodent exterminator insulin use: without assisted use Diabetes mellitus type: type 2 Qualified Code(s): E11.9 - Type 2 diabetes mellitus without complications (6) Acute worsening of stage 3 chronic kidney disease: Status: Acute Problem details: -baseline Cr appears to be 1.6-2 -continue to monitor renal function (7) Aspiration into respiratory tract: Status: Acute Problem details: -noted evidence of patchy ground glass opacity in RUL concerning for pneumonia likely secondary to aspiration -has known hx of aspiration -[facility] today, NPO for this -aspiration precautions Qualifiers: Encounter type: initial encounter Qualified Code(s): T17.908A - Unspecified foreign body in respiratory tract, part unspecified causing other injury, initial encounter Other Information Additional DC diagnoses/information: -Hypokalemia; likely secondary to diuretics; replace as needed -hx of CAD s/p stenting (10/2008) -chronic iron deficiency anemia; baseline Hg 9-10; continue to monitor, iron supplementation Reason for Visit Reason for Visit: CHF Hospital Course Hospital Course: Patient was admitted to the cardiac stepdown unit and hemodynamic status closely monitored in light of hypertensive emergency on admission. She also required some diuresis secondary to noted bilateral pleural effusions and possible pulmonary edema on imaging. She is bedbound/wheelchair bound at baseline and due to history of multiple sclerosis with neurogenic bladder she has a chronic suprapubic catheter as well. She follows up with Dr. Estrada and Dr. Jeronimo respectively. She has a prior history of aspiration likely secondary to underlying multiple sclerosis and in light of noted patchy groundglass opacity in the right upper lobe she had a modified barium swallow to further evaluate for this. Findings were discussed with speech therapy and diet recommendations followed. She initially required nicardipine drip to get her blood pressure better controlled which has since been discontinued. With adjustments of her oral antihypertensive regimen her blood pressure is better controlled though she does still have a tendency to have higher than target goal blood pressure. I suspect that this will be an ongoing challenge likely due to element of autonomic dysregulation secondary to multiple sclerosis. For now would continue current antihypertensive regimen. Urinalysis was found to be indicative of infection though this seems to be a chronic issue and she is on methenamine for this. Urine cultures have been polymicrobial including E. coli, strep and staph species. Likely colonization in light of chronic suprapubic catheter so would not administer further antibiotic treatment at this time. She will continue oral diuretics with need for close monitoring of her weight and output to minimize of CHF exacerbation. Renal function appears to be at her baseline. With her multiple comorbidities she continues to be at risk for readmission. She will need to continue to follow-up with her primary care provider as well as with Dr. Jeronimo and Dr. Estrada. She will be discharged back to [facility] this afternoon. Discharge Summary: -Patient to follow up with Dr. Ware within 1 week or per SNF -Patient to continue to follow-up with Dr. Estrada -Patient to continue to follow-up with Dr. Jeronimo Physical Exam Const: COMMON NORMALS: no acute distress and patient oriented x3 GENERAL APPEARANCE: cooperative and comfortable NUTRITIONAL APPEARANCE: obese morbidly obese ORIENTATION/CONSCIOUSNESS: Yes awake HENMT: COMMON NORMALS: normocephalic, atraumatic, hearing grossly normal bilaterally and moist oral mucous membranes HEAD & SCALP: normocephalic and atraumatic Eye: COMMON NORMALS: Equal, round and reactive pupils present, EOMs intact bilaterally and conjunctivae normal CONJUNCTIVA: Yes conjunctivae normal PUPIL: Yes Equal, round and reactive pupils present Neck/C-Spine: COMMON NORMALS: full ROM GENERAL: Yes normal visual inspection and Yes trachea midline Resp: COMMON NORMALS: normal respiratory effort, No retractions, No use of accessory muscles and clear to auscultation bilaterally EFFORT & INSPECTION: Yes able to speak in complete sentences, Yes symmetric chest movement and No tachypneic AUSCULTATION: clear to auscultation bilaterally OTHER: -on 2 L NC Cardio: COMMON NORMALS: regular rate, regular rhythm, S1 normal heart sound present, S2 normal heart sound present and No murmurs present (Cardio) RATE: regular rate RHYTHM: regular rhythm HEART SOUNDS: S1 normal heart sound present and S2 normal heart sound present GI: COMMON NORMALS: Normal to inspection, nondistended, normoactive bowel sounds present, Soft to palpation and non-tender INSPECTION: Yes central obesity PALPATION: Yes Soft to palpation : BLADDER/KIDNEY EXAM: Yes catheter in place Catheter type (Female): suprapubic (chronic) Extremity: COMMON NORMALS: normal to inspection, full ROM and no clubbing, cyanosis or edema; negative for no pedal edema NARRATIVE EXTREMITY EXAM: -non-pitting edema of bilateral LEs, foot drop bilaterally -contracted hands bilaterally Neuro: COMMON NORMALS: patient oriented x3 Psych: COMMON NORMALS: mental status grossly normal, Normal thought process present, cooperative and speech normal SPEECH: Yes normal speech MOOD & AFFECT: Yes Flat affect present THOUGHT PROCESS: Normal thought process present Skin: COMMON NORMALS: no rashes or lesions noted, no jaundice, no petechiae and no mottling GENERAL SKIN EXAM: no rashes or lesions noted Urinary Catheter Management^: Suprapubic: Cath Placed During This Visit: no Reason for Continuing Indwelling Catheter: Chronic Indwelling Urinary Catheter on Admission Discharge Data Data Completed and Pending: Completed Studies During Hospitalization Category Date Time Status CT chest wo con 7 1250 Routine Cat Scan 02/14/20 15:15 Completed [place] barium swallow modifd 78093 Rout ine Exams 02/17/20 07:00 Completed XR chest 1V celso ble 06107 Stat Exams 02/13/20 20:53 Completed CV echo complete* [id number] Routine Ultrasound 02/15/20 07:00 Completed Pending at discharge Category Date Time Status Blood Culture Sta t Lab 02/13/20 21:10 Results Urine Culture Sta t Lab 02/13/20 22:30 Results Labs from last 24 hours 02/17/20 02/17/20 04:10 04:10 WBC 5.8 RBC 3.14 L Hgb 8.9 L Hct 29.9 L MCV 95.2 MCH 28.3 MCHC 29.8 L RDW 14.4 Plt Count 147 MPV 11.1 H Neut % (Auto) 78.2 Lymph % (Auto) 13.5 [place] % (Auto) 6.1 Eos % (Auto) 0.9 Baso % (Auto) 0.3 Neut # (Auto) 4.5 Lymph # (Auto) 0.8 [place] # (Auto) 0.4 Eos # (Auto) 0.1 Baso # (Auto) 0.0 Nucleated RBC % (a uto) 0 Nucleated RBCs # 0.0 Sodium 143 Potassium 2.8 L* Chloride 98 Carbon Dioxide 31 H Anion Gap 16.8 BUN 30 H Creatinine 1.9 H Glucose 101 Calculated Osmolal ity 293 Calcium 9.6 Total Bilirubin 0.3 AST 16 ALT 22 Alkaline Phosphata se 105 Total Protein 6.4 L Albumin 3.4 L Globulin 3.0 Vitals: Last Vital Signs Temp 97.7 F 02/17/20 07:22 Pulse 62 02/17/20 12:00 Resp 19 H 02/17/20 12:00 BP 152/58 02/17/20 12:00 Pulse Ox 92 02/17/20 12:00 Discharge Plan Discharge Patient Disposition: Xfer SNF Condition: Stable Prescriptions: New carvedilol 6.25 mg Tablet 6.25 mg PO BID 30 Days Qty: 60 RF: 0 hydralazine 50 mg Tablet 50 mg PO TID 30 Days Qty: 90 RF: 0 ferrous sulfate 325 mg (65 mg iron) Tablet,Delayed Release (Dr/Ec) 325 mg PO BIDWM 30 Days Qty: 60 RF: 0 Continued diazepam [Valium] 10 mg tablet 10 mg PO BEDTIME RF: 0 Prilosec OTC 20 mg tablet,delayed release (DR/EC) 20 mg PO BID RF: 0 albuterol sulfate 2.5 mg /3 mL (0.083 %) solution for nebulization 2.5 mg INHALATION Q4H PRN (Reason: Shortness Of Breath) RF: 0 methenamine hippurate 1 gram tablet 1 gm PO BID RF: 0 polyethylene glycol 3350 [Miralax] 17 gram/dose powder 17 gm PO DAILY RF: 0 docusate sodium [Colace] 100 mg capsule 100 mg PO BID RF: 0 acetaminophen 650 mg suppository 650 mg [place] Q4H PRN (Reason: Pain) RF: 0 bisacodyl [Dulcolax (bisacodyl)] 10 mg suppository 10 mg [place] PRN RF: 0 acetaminophen [Tylenol] 325 mg tablet 325 - 650 mg PO Q4H PRN (Reason: Pain) RF: 0 clopidogrel 75 mg tablet 75 mg PO DAILY RF: 0 cholecalciferol (vitamin D3) 1,000 unit capsule 1,000 unit PO DAILY RF: 0 phenazopyridine [Pyridium] 200 mg tablet 200 mg PO TID PRN (Reason: unknown) RF: 0 potassium chloride 20 mEq tablet extended release 20 meq PO BID RF: 0 Vitamin C 1,000 mg Tablet 1 g PO BID RF: 0 citalopram 40 mg Tablet 40 mg PO DAILY RF: 0 Milk of Magnesia 400 mg/5 mL Suspension 400 mg PO DAILY PRN (Reason: Constipation) RF: 0 Mi-Acid Gas Relief(simethicon) 80 mg Tablet,Chewable 80 mg PO DAILY PRN (Reason: Abdominal Distention) RF: 0 isosorbide mononitrate 60 mg tablet extended release 24 hr 120 mg PO DAILY 30 Days Qty: 60 RF: 0 amlodipine 10 mg tablet 10 mg PO DAILY 30 Days Qty: 30 RF: 0 bisacodyl 5 mg Tablet,Delayed Release (Dr/Ec) 10 mg PO DAILY PRN (Reason: Constipation) RF: 0 ipratropium-albuterol 0.5 mg-3 mg(2.5 mg base)/3 mL Solution For Nebulization 3 ml inhalation Q6H PRN (Reason: Shortness Of Breath) Qty: 90 RF: 0 Changed Lasix 20 mg tablet 60 mg PO BID 30 Days Qty: 180 RF: 0 Discontinued hydralazine 10 mg tablet 10 mg PO TID Qty: 90 RF: 0 Discharge Orders: Discharge Order (Routine); Ordered 02/17/20 Ordered By: Lacey Vinson Referrals: Svetlana Ware MD [Primary Care Provider] - 4-7 days (Post hospital discharge follow up. Treated for hypertensive emergency and acute CHF exacerbation. ) Discharge Activity: Wheelchair as instructed Activity Restrictions/Additional Instructions: -Patient had a modified barium swallow study during her hospital stay, she will need aspiration precautions and diet should be regular consistency with nectar thick liquids due to noted esophageal dysmotility to prevent further aspiration -Fall precautions should continue -Supplemental oxygen can be provided for patient comfort or as needed to maintain her saturation at/above 92% Discharge Attestations Time Spent in Discharge Care*: greater than 30 min Specific Discharge Activities: Specific discharge activities: educating patient, discussing with case investigator/social workers/dc planners, documenting/other paperwork and evaluating patient/reviewing data Status at Discharge: Behavioral status at discharge: cooperative , Functional status at discharge: wheelchair bound Overall status at discharge: patient is progressing back to baseline Quality Metrics Clinical Quality Measures During this hospital stay, did patient experience: None Coding Level of Care Code Acute Solution Coordinator for [facility] Fwd Diagnoses Uncontrolled hypertension I10 Recurrent UTI N39.0 Multiple sclerosis G35 Heart failure with preserved ejection fraction I50.33 Heart failure chronicity: acute on chronic Diabetes E11.9 Diabetes mellitus complication status: without complication Diabetes mellitus assisted insulin use: without rodent exterminator use Diabetes mellitus type: type 2 Acute worsening of stage 3 chronic kidney disease N18.3 Aspiration into respiratory tract T17.908A Encounter type: initial encounter
[2020-02-17] MEDS: potassium chloride premix 40 MEQ/100 ML PREMIX 25 MEQ IV (13:22)
[2020-02-17] MEDS: lidocaine 1% INJ 20 mL 5 ML IV ×2 (13:23)
--- NOTE | 2020-02-17 15:06 | PC.NURSE ---
DR. HDZ NOTIFIED OF KRIDER'S NOT GOING TO BE ADMINISTERED IN TIME FOR DISCHARGE. ORDERED PO LIQUID POTASSIUM.
[2020-02-17] MEDS: potassium chloride oral liq 20 mEq/15 mL UDC 40 MEQ PO ×2 (15:36→15:37)
--- NOTE | 2020-02-17 16:38 | PC.SOCIAL ---
Asked [facility] to come back in about 30 min to orange picker patient so spouse would be able to see her. This was at 3:51pm. Spouse is on his way and Ashley along with Jesus at [facility] agreed. arrived and temp was checked and read 98.2. He was provided a mask. Dane with assistance of nursing staff had loaded her on gurney and wheeled her to outpatient area GI area for the visit. The patient and spouse had 30-40 min of quality time. Dane and this nurse checked on patient throughout visit to ensure needs were met. After spouse left hospital, O2 tank was returned to CSU by this nurse and [facility] had brought their tank. Chair cleaned with purple top wipes where spouse was sitting. All needs met.
== END 2020-02-17 16:15 | disposition skilled nursing facility (03) | DRG 291 ==
LOC: ER 23:01 → CSU 02-14 00:21
PROVIDERS: Family Medicine; Student in an Organized Health Care Education/Training Program; Admitting Provider Internal Medicine; PCP Family Medicine; Visit Provider Family Medicine
DX: I13.0 Hypertensive heart and chronic kidney disease with heart failure and stage 1 through stage 4 chronic kidney disease, or unspecified chronic kidney disease (principal); I50.33 Acute on chronic diastolic (congestive) heart failure; J69.0 Pneumonitis due to inhalation of food and vomit; I16.1 Hypertensive emergency; T83.510A Infection and inflammatory reaction due to cystostomy catheter, initial encounter; G35 Multiple sclerosis; N31.9 Neuromuscular dysfunction of bladder, unspecified; Z93.59 Other cystostomy status; Z74.01 Bed confinement status; N18.3 Chronic kidney disease, stage 3 (moderate); E11.22 Type 2 diabetes mellitus with diabetic chronic kidney disease; Y73.1 Therapeutic (nonsurgical) and rehabilitative gastroenterology and urology devices associated with adverse incidents; I25.10 Atherosclerotic heart disease of native coronary artery without angina pectoris; Z95.5 Presence of coronary angioplasty implant and graft; Z87.891 Personal history of nicotine dependence; F32.9 Major depressive disorder, single episode, unspecified; J44.9 Chronic obstructive pulmonary disease, unspecified; Z66 Do not resuscitate; D50.9 Iron deficiency anemia, unspecified; K22.4 Dyskinesia of esophagus; Z79.51 Long term (current) use of inhaled steroids; B96.20 Unspecified Escherichia coli [E. coli] as the cause of diseases classified elsewhere; B95.8 Unspecified staphylococcus as the cause of diseases classified elsewhere; B95.5 Unspecified streptococcus as the cause of diseases classified elsewhere; E87.6 Hypokalemia
CPT/HCPCS: 12345; 36415; 36600; 71045; 71250; 74230; 80051; 80053; 81001; 82810; 83036; 83540; 83550; 83605; 83690; 83880; 83986; 84443; 84484; 85025; 87040; 87077; 87086; 87186; 92611; 93005; 93306; 94640; 94660; 94664; 96372; 96375; 99283; J0360; J1644; J1940; J2001; J2270; J3480